=== PATIENT | female | born 1970 | race Caucasian/White ===

== ENCOUNTER 2023-10-15 08:53 | Inpatient (IN) | payer OTHER, SELFPAY ==
[2023-10-15] VITALS (12 sets, daily range): BP systolic 92–152; BP diastolic 56–94; PULSE 81–127; RESP 15–18; TEMP 36.2–37.8; O2SAT 94–100; BMI 16.3
--- NOTE | ~2023-10-15 | CT_ITS ---
EXAMINATION: CT ABDOMEN AND PELVIS WITH CONTRAST CLINICAL INFORMATION: Lower abdominal pain. COMPARISON: None available. TECHNIQUE: Multidetector volumetric images were obtained from the superior aspect of the liver through the pubic symphysis following administration 85 mL of Omnipaque 350 intravenous contrast. Sagittal and coronal reformatted images were obtained on the technologist's workstation. Oral contrast: No This CT examination was performed using dose optimization techniques as appropriate, variously including the following: *Automated exposure control *Adjustment of mA and/or kV according to patient size (this includes techniques or standardized protocols for targeted exams where dose is matched to indication/reason for exam; i.e. extremities or head) *Use of iterative reconstruction technique DLP: 260 mGy-cm FINDINGS: LUNG BASES: Small pericardial effusion. LIVER, GALLBLADDER, AND BILIARY TREE: The liver is normal in size, shape, and attenuation. No biliary ductal dilatation is present. The gallbladder is unremarkable with no evidence of radiopaque gallstones, gallbladder wall thickening, or obvious pericholecystic inflammatory changes. PANCREAS: Unremarkable. SPLEEN: Unremarkable. ADRENAL GLANDS: Unremarkable. KIDNEYS AND URETERS: Delayed enhancement of the left kidney. Moderate to marked left hydronephrosis. 1.2 x 1.2 x 1.3 cm impacted calculus at the left renal pelvis. No significant perinephric stranding. Left kidney: 2 mm upper pole nonobstructing calculus. 5 mm midpole nonobstructing calculus. 5 mm and 3 mm mid to lower pole nonobstructing calculi. 10 mm lower pole nonobstructing calculus. The right kidney enhances normally. There is an focus of enhancement in the right renal pelvis measuring 1.1 x 0.7 x 0.8 cm on image 25 of series 3. BLADDER: No bladder calculus. GASTROINTESTINAL TRACT: Rectal wall thickening with luminal narrowing. Diffuse colonic wall thickening. There is mid to distal small bowel wall thickening with submucosal edema including the terminal ileum. ABDOMINAL WALL: No significant hernia is appreciated. LYMPH NODES: No bulky abdominal or pelvic lymphadenopathy. VASCULAR: Normal caliber abdominal aorta with moderate atherosclerotic vascular calcification. PELVIC VISCERA: Moderate free fluid in the pelvis. OSSEOUS STRUCTURES: No destructive bone lesions. CT/CT abdomen pelvis w IV con IMPRESSION: Small and large bowel wall thickening with submucosal edema. The terminal ileum is thick walled. There is moderate free fluid in the pelvis. These findings can be seen in the setting of inflammatory bowel disease. Moderate to marked left hydronephrosis with 1.3 x 1.3 x 1.3 cm impacted calculus in the left renal pelvis. No significant left perinephric stranding. There are numerous additional nonobstructing left renal calculi as described above. Delayed enhancement of the left kidney due to obstructive physiology. Focus of possible enhancement within the right renal pelvis measuring 1.1 x 0.7 [address] urogram.
--- NOTE | ~2023-10-15 | FL_ITS ---
EXAMINATION: XR FLUOROSCOPY WITH IMAGES CLINICAL INFORMATION: Left ureteral stent. COMPARISON: None available. TECHNIQUE: Fluoroscopy Supervised By: Dr. Galan. Fluoroscopy Time: 17.3 seconds. Cumulative Dose: 2.58 mGy. Images: 4. FINDINGS: There are 4 digital images obtained during retrograde pyelogram with contrast opacifying a dilated pelvicalyceal system. On subsequent images there is internal ureteral stent noted. FL/FL guidance in OR IMPRESSION: Fluoroscopy-guidance was provided to referring physician during retrograde pyelogram and placement of internal ureteral stent.
--- NOTE | 2023-10-15 09:12 | ED.GENADULT ---
HPI - General Adult General Chief complaint: General Medical Stated complaint: SEVERE LOW ABD/GENITAL PAIN RAD TO ESOPHAGUS,N/V Time Seen by Provider: 10/15/23 08:56 Source: patient and EMS Mode of arrival: EMS Limitations: no limitations History of Present Illness HPI narrative: 53-year-old female came in for evaluation of lower abdominal pain for 2 days. Patient is sickness started with flu-like symptoms 2 days ago with fever and chills, then next day patient started to have intractable vomiting, and lower abdominal pain that progressively getting worse, lower abdomen cramps and severe pain which is intermittent lasts for about few minutes each time, patient stated that she had a small bowel movement yesterday, having burning sensation with urination. Never had similar abdominal pain in the past, no history of abdominal surgery. Related Data Allergies Allergy/AdvReac Type Severity Reaction Status Date / Time No Known Allergies Allergy Verified 10/15/23 09:06 Review of Systems Review of Systems: All other systems are reviewed and are negative Constitutional: Reports as per HPI and Reports no additional constitutional complaints Eyes: Reports as per HPI and Reports no additional eye complaints Reports system reviewed and no additional complaints, except as documented Cardiovascular: Reports as per HPI and Reports no additional cardiovascular complaints Respiratory: Reports as per HPI and Reports no additional respiratory complaints Gastrointestinal: Reports as per HPI and Reports no additional gastrointestinal complaints Genitourinary: Reports no additional female genitourinary complaints Musculoskeletal: Reports no additional musculoskeletal complaints Skin/Breast: Reports system reviewed and no additional complaints, except as docu Psychiatric: Reports no additional psychiatric complaints Endocrine: Reports no additional endocrine complaints Hematologic/Lymphatic: Reports no additional hematologic/lymphatic complaints Allergic/Immunologic: Reports no additional allergic/immunologic complaints Reports system reviewed and no additional complaints, except as documented and Reports Abnormal speech present [facility] Past Medical History Medical History (Updated 10/15/23 @ 14:03 by Hasmukh Burks MD) Underweight Cerebellar abscess Anxiety Social History Social History Advance Directives: No Advance Directives Information Provided: Yes Physical Exam ED Vital Signs: Vital Signs - 24 hr 10/15/23 09:09 10/15/23 09:26 10/15/23 11:28 Temperature 97.5 F 98.2 F Pulse Rate 94 99 Respiratory Rate 16 18 16 Blood Pressure 142/91 H 132/85 Pulse Oximetry 97 95 Oxygen Delivery Method Room Air Room Air BMI result Body Mass Index 16.3 Vital signs have been reviewed and appear to be correct. Blood pressure elevated. Heart rate normal. Respiratory rate normal. Temperature normal. Oxygen saturation normal. Appearance: Alert. Oriented X3. No acute distress. Head: Normal external exam. Normocephalic. Atraumatic. No Esquivel signs noted. No raccoon eyes noted Eyes: PERRLA. EOMI. Conjunctiva and sclera normal. Eyelids normal. ENT: TM's Normal. Pharynx normal. Uvula midline. Moist mucous membranes. No trismus noted. No drooling noted. No muffled voice noted. Neck: Normal inspection. Neck supple. FROM. No adenopathy. Thyroid Normal. No meningeal signs. No neck mass noted. CVS: Normal heart rate and rhythm. Heart sound normal. No murmurs noted. Pulses normal throughout. Respiratory: No respiratory distress. Painless inspiration. Breath sounds normal. No wheezes/rales/rhonchi noted. Chest nontender. No accessory muscle usage noted or decreased air movement noted. Abdomen: Soft and nontender. Bowel sounds normal in all 4 quadrants. No distention noted. No organomegaly noted. No visible injury noted. Back: No CVA tenderness. Full range of motion noted. Skin: Skin warm and dry. Normal skin color. Normal skin turgor. No rashes/lesions/lacerations noted. Extremities: No lower extremity edema. Extremities exhibit normal range of motion. Extremities nontender. Neuro: Oriented X 3. Cranial nerve exam: II-XII are grossly intact No motor deficit. No sensory deficit. Reflexes normal. Course Reevaluation(s) Reevaluation #1: Acute colitis, will start the patient on Zosyn. Patient also have a UTI with SIRS criteria should be covered by Zosyn. CT is revealing left hydronephrosis with impacted calculus in the left renal pelvis with no perinephric stranding which is not likely to be obstructive stone the case was discussed with Dr. Kiran Garcia. Patient felt better with Dilaudid IV with less tender abdomen. Time: 13:50 Medications Administered Discontinued Medications Generic Name Dose Route Start Last Admin Trade Name Freq PRN Reason Stop Dose Admin Hydromorphone HCl 0.5 mg 10/15/23 11:13 10/15/23 11:26 Hydromorphone Hcl 0.5 Mg/0.5 Ml Syringe IVPUSH 10/15/23 11:14 0.5 mg ONCE ONE Administration Protocol Sodium Chloride 1,000 mls @ 999 mls/hr 10/15/23 09:06 10/15/23 11:27 Ns IV 10/15/23 10:06 Infused .Q1H1M ONE Infusion Iohexol 100 ml 10/15/23 11:16 10/15/23 11:17 Iohexol 350 Mg/Ml 100 Ml Infus..Btl IV 10/15/23 11:17 85 ml ONCE ONE Administration Morphine Sulfate 1 mg 10/15/23 09:06 10/15/23 09:26 Morphine Sulfate 2 Mg/Ml Cartridge IVPUSH 10/15/23 09:07 1 mg ONCE ONE Administration Protocol Medical Decision Making Differential Diagnosis Differential Diagnoses: The differential diagnosis associated with the presentation includes (UTI, pyelonephritis, obstructive uropathy, colitis, severe anemia, dehydration with electrolyte abnormality.) Admission/Observation Consideration of admission/observation: Escalation of care including admission/observation considered Consult Healthcare Provider Management of the patient was discussed with: Hospitalist () and [employer] (Dr. Kiran Garcia) Lab Data MDM Lab Attestation statement: I reviewed the patient's lab results. 10/15/23 09:25 10/15/23 09:25 Labs: Lab Results 10/15/23 10/15/23 Range/Units 09:25 13:17 WBC 15.3 H (4.8-10.8) X10*3/uL RBC 5.23 (4.20-5.50) X10*6/uL Hgb 15.6 (12.0-16.0) g/dl Hct 45.3 (37.0-47.0) % MCV 86.6 (80.0-98.0) fL MCH 29.8 (27.0-33.0) pg MCHC 34.4 (31.0-35.0) g/dl RDW 13.0 (11.0-16.0) % Plt Count 288 (160-400) X10*3/uL MPV 9.2 L (9.4-12.3) fL Immature Gran % (Auto) 0.3 (0.0-0.4) % Neut % (Auto) 89.8 H (45-73) % Lymph % (Auto) 6.6 L (20-40) % Orange % (Auto) 2.9 (2-11) % Eos % (Auto) 0.1 (0-4) % Baso % (Auto) 0.3 (0-2) % Lymph # (Auto) 1.0 L (1.2-4.9) X10*3/uL Orange # (Auto) 0.4 (0.1-1.2) X10*3/uL Eos # (Auto) 0.0 (0.0-0.4) X10*3/uL Baso # (Auto) 0.0 (0.0-0.2) X10*3/uL Abs Immat Gran (auto) 0.05 H (0.00-0.03) X10*3/uL Absolute Neuts (auto) 13.7 H (2.0-8.3) x10*3/uL Absolute Nucleated RBC 0.000 (0.0-0.012) X10*3/uL Nucleated RBC % (auto) 0.0 (0.0-0.2) /100WBC Sodium 137 (135-145) mmol/L Potassium 3.5 (3.3-5.1) mmol/L Chloride 101 (96-108) mmol/L Carbon Dioxide 23 (22-29) mmol/L Anion Gap 17 (12-20) BUN 22 H (9-16) mg/dL Creatinine 0.84 (0.5-1.4) mg/dL Estim Creat Clear Calc 50.3 Estimated GFR > 60 Random Glucose 130 H (60-115) mg/dL Calcium 10.1 (8.4-10.2) mg/dL Total Bilirubin 0.8 (0.0-1.0) mg/dL Direct Bilirubin 0.3 (0.0-0.5) mg/dL AST 12 (5-31) U/L ALT 7 (0-31) U/L Alkaline Phosphatase 65 (39-117) U/L Troponin I High Sens 3.5 (<3.5-17.0) ng/L B-Natriuretic Peptide 63 (<100) pg/mL Total Protein 7.4 (6.5-8.0) g/dL Albumin 4.1 (3.5-5.0) g/dL Lipase 9 (8-78) U/L Urine Color Yellow Urine Appearance Turbid Urine pH 6.0 (5.0-9.0) Ur Specific [place] >= 1.030 H (1.005-1.025) Urine Protein 30 (1+) H (Neg-Trace) mg/dL Urine Glucose (UA) Negative (Negative) mg/dL Urine Ketones Trace (Negative) mg/dL Urine Blood Large (3+) H (Negative) Urine Nitrite Negative (Negative) Ur Leukocyte Esterase Moderate (2+) H (Negative) Urine RBC >20 H (0-2) /HPF Urine WBC >50 H (0-5) /HPF Ur Squamous Epith Cells 11-20 (0-2) /HPF Urine Bacteria 3+ (None Seen) Hyaline Casts 6-10 (0-2) /LPF Stool Occult Blood NEGATIVE (NEGATIVE) Independent Interpretation I performed an independent interpretation of an: CT Scan (Abdomen and pelvis:Small and large bowel wall thickening with submucosal edema. The terminal ileum is thick walled. There is moderate free fluid in the pelvis. These findings can be seen in the setting of inflammatory bowel disease. Moderate to marked left hydronephrosis with 1.3 x 1.3 x 1.3 cm im) Radiology Impression Discussion of test interpretation with radiology: I have reviewed the radiologist's reading. Critical Care Time Critical Care Time Critical Care Time: Yes Total Critical Care Time: 45 Attestation: I spent 45 minutes providing critical care service to the patient, this including time spent at the bedside to evaluate the patient, reassess the patient, monitoring vital signs, review labs, and radiographic studies, counseling the patient/family, discussing the case with consultants, disposition the patient. Discharge Plan Discharge Clinical Impression: UTI (urinary tract infection), Colitis Patient Disposition: Admitted As Inpatient
[2023-10-15] MEDS: Morphine Sulfate 2 MG/ML CARTRIDGE 1 MG IVPUSH (09:26)
[2023-10-15] MEDS: 0.9 % Sodium Chloride 1,000 ML 999 ML IV (09:27)
[2023-10-15 09:28] LABS: MANUAL DIFF FLAG NO
[2023-10-15 09:29] LABS: Basophils Percent Auto 0.3 % (0-2); Eosinophils Percent Auto 0.1 % (0-4); Hematocrit 45.3 % (37.0-47.0); Hemoglobin 15.6 g/dl (12.0-16.0); Imm Gran Abs Auto 0.05 X10*3/uL (0.00-0.03); Imm Gran Pct Auto 0.3 % (0.0-0.4); Lymphocytes Percent Auto 6.6 % (20-40); Mean Corpuscular HGB Conc 34.4 g/dl (31.0-35.0); Mean Corpuscular Hemoglobin 29.8 pg (27.0-33.0); Mean Corpuscular Volume 86.6 fL (80.0-98.0); Mean Platelet Volume 9.2 fL (9.4-12.3); Monocytes Absolute Auto 0.4 X10*3/uL (0.1-1.2); Monocytes Percent Auto 2.9 % (2-11); Neutrophils Absolute Auto 13.7 x10*3/uL (2.0-8.3); Neutrophils Percent Auto 89.8 % (45-73); Platelet Count 288 X10*3/uL (160-400); Red Blood Count 5.23 X10*6/uL (4.20-5.50); White Blood Count 15.3 X10*3/uL (4.8-10.8)
[2023-10-15 09:31] LABS: OBS Int Ctl Valid YES; OBS1 NEGATIVE (NEGATIVE)
--- NOTE | 2023-10-15 09:31 | PC.NURSE ---
sent all 4 tubes to lab and guiac stool card to lab. given morphine for abdominal and genital pain as reported. piv to left ac 20g c/d/i.
[2023-10-15 09:43] LABS: Alanine Aminotransferase 7 U/L (0-31); Albumin Level 4.1 g/dL (3.5-5.0); Alkaline Phosphatase 65 U/L (39-117); Anion Gap 17 (12-20); Aspartate Amino Transferase 12 U/L (5-31); Bilirubin Direct 0.3 mg/dL (0.0-0.5); Bilirubin Total 0.8 mg/dL (0.0-1.0); Blood Urea Nitrogen 22 mg/dL (9-16); Calcium 10.1 mg/dL (8.4-10.2); Carbon Dioxide 23 mmol/L (22-29); Chloride 101 mmol/L (96-108); Creatinine Clr Calc Pharmacy 50.3; Estimated Glomerular Filt Rate > 60; Glucose Random 130 mg/dL (60-115); Lipase 9 U/L (8-78); Potassium 3.5 mmol/L (3.3-5.1); Sodium 137 mmol/L (135-145); Total Protein 7.4 g/dL (6.5-8.0)
[2023-10-15 09:48] LABS: B Type Natriuretic Peptide 63 pg/mL (<100)
[2023-10-15 09:50] LABS: Troponin-I High Sensitivity 3.5 ng/L (<3.5-17.0)
[2023-10-15] MEDS: iohexoL 350 MG/ML 100 ML INFUS..BTL IV (11:17)
[2023-10-15] MEDS: HYDROmorphone HCl 0.5 MG/0.5 ML SYRINGE IVPUSH (11:26)
[2023-10-15 13:25] LABS: Appearance Urine Turbid; Color Urine Yellow; Glucose Urine UA Negative (Negative); Leukocyte Esterase Urine Moderate (2+) (Negative); Nitrite Urine Negative (Negative); Specific Gravity - Urine >= 1.030 (1.005-1.025); UMIC TRIGGER UACC YES; Urine Blood Large (3+) (Negative); Urine Ketones Trace mg/dL (Negative); Urine Protein 30 (1+) mg/dL (Neg-Trace)
[2023-10-15 13:40] LABS: Bacteria Urine 3+ (None Seen); RBC Urine >20 /HPF (0-2); UACC Culture Trigger YES; WBC Urine >50 /HPF (0-5)
[2023-10-15] MEDS: Piperacillin Sodium/Tazobactam 3.375 GM in 0.9 % Sodium Chloride 50 ML IV (14:20)
[2023-10-15 14:21] LABS: C Reactive Protein 31.72 mg/dL (< or = 0.50)
--- NOTE | 2023-10-15 14:22 | PM.IMHP ---
History of Present Illness Date of Service: 10/15/23 Chief Complaint: n/v 53F PMH unintentional weight loss, nephrolithiasis presented with abd pain, n/v. symptoms began 2 nights prior to presentation. severe diffuse abdominal pain a/w nausea and vomiting. subjective fevers, chills. also reports about 30lbs unintentional weight loss despite reasonable appetite over past several months. denies diarrhea, blood in stool. in ED noted to have obstructing left ureteral stone, positive ua, ileocolitis. Review of Systems Review of Systems: Yes all other systems are reviewed and are negative [facility] Medical History Underweight Cerebellar abscess Anxiety Social History Advance Directives: No Advance Directives Information Provided: Yes Meds Allergies Allergy/AdvReac Type Severity Reaction Status Date / Time No Known Allergies Allergy Verified 10/15/23 09:06 Home Medications Medication Instructions Recorded Confirmed Last Taken Type No Known Home Meds 10/15/23 10/15/23 Unknown History Physical Exam Vital Signs and Narrative: Vital Signs: Last Vital Signs Temp 98.2 F 10/15/23 11:28 Pulse 99 10/15/23 11:28 Resp 16 10/15/23 11:28 BP 132/85 10/15/23 11:28 Pulse Ox 95 10/15/23 11:28 O2 Del Method Room Air 10/15/23 11:28 BMI result Body Mass Index 16.3 General: AO X 3, no acute distress Resp: CTA bilateral, no accessory muscles used CVS: S1,S2,RRR GI: soft, non tender, non distended Neuro: motor grossly intact, alert Psych: appropriate affect, appropriate insight Results Labs 10/15/23 09:25 10/15/23 09:25 Labs: Laboratory Results - last 24 hr 10/15/23 10/15/23 09:25 13:17 MCV 86.6 MCH 29.8 MCHC 34.4 RDW 13.0 Plt Count 288 MPV 9.2 L Immature Gran % (Auto) 0.3 Neut % (Auto) 89.8 H Lymph % (Auto) 6.6 L Keith % (Auto) 2.9 Eos % (Auto) 0.1 Baso % (Auto) 0.3 Lymph # (Auto) 1.0 L Keith # (Auto) 0.4 Eos # (Auto) 0.0 Baso # (Auto) 0.0 Abs Immat Gran (auto) 0.05 H Absolute Neuts (auto) 13.7 H Absolute Nucleated RBC 0.000 Nucleated RBC % (auto) 0.0 Anion Gap 17 Estim Creat Clear Calc 50.3 Estimated GFR > 60 Random Glucose 130 H Calcium 10.1 Total Bilirubin 0.8 Direct Bilirubin 0.3 AST 12 ALT 7 Alkaline Phosphatase 65 Troponin I High Sens 3.5 C-Reactive Protein 31.72 H B-Natriuretic Peptide 63 Total Protein 7.4 Albumin 4.1 Lipase 9 Urine Color Yellow Urine Appearance Turbid Urine pH 6.0 Ur Specific [place] >= 1.030 H Urine Protein 30 (1+) H Urine Glucose (UA) Negative Urine Ketones Trace Urine Blood Large (3+) H Urine Nitrite Negative Ur Leukocyte Esterase Moderate (2+) H Urine RBC >20 H Urine WBC >50 H Ur Squamous Epith Cells 11-20 Urine Bacteria 3+ Hyaline Casts 6-10 Stool Occult Blood NEGATIVE Imaging Radiologist's Impressions: Impressions Abdomen/Pelvis CT 10/15/23 11:50 IMPRESSION: Small and large bowel wall thickening with submucosal edema. The terminal ileum is thick walled. There is moderate free fluid in the pelvis. These findings can be seen in the setting of inflammatory bowel disease. Moderate to marked left hydronephrosis with 1.3 x 1.3 x 1.3 cm impacted calculus in the left renal pelvis. No significant left perinephric stranding. There are numerous additional nonobstructing left renal calculi as described above. Delayed enhancement of the left kidney due to obstructive physiology. Focus of possible enhancement within the right renal pelvis measuring 1.1 x 0.7 x [address] urogram. Assessment and Plan (1) Colitis: Status: Acute (2) UTI (urinary tract infection): Status: Acute Plan 53F PMH unintentional weight loss, nephrolithiasis presented with abd pain, n/v sepsis due to UTI due to obstructing left nephrolithiasis with hydronephrosis rocpehin, cultures, gu eval ileocolitis concern for IBD empiric rocpehin, flagyl check stool pcr, calprotectin, gi eval clears for now unintentional weight loss - underweight ?due to above dvt prophylaxis - lovenox full code patient with significant urine infection, obstructing stone, not tolerating solids, likely to need surgical intervention, therefore, expected to require atleast 2 midnights inpatient. Quality Stroke Does the patient have a stroke diagnosis?: No VTE Prior VTE?: No VTE Risk Level:: Medical - moderate - high VTE Device Contraindication: Treatment Not Indicated VTE Drug Contraindication: N/A - Med Ordered
--- NOTE | 2023-10-15 14:31 | PHA.MEDREC ---
Pharmacy Consult ? Medication Reconciliation Pharmacy has completed the medication reconciliation. Patient reported no medicaiton at home. Yoli Arteaga, DestinyD
[2023-10-15 15:00] LABS: Lactic Acid 0.9 mmol/L (0.5-2.0)
--- NOTE | 2023-10-15 15:32 | P.CNUR_ITS ---
History of Present Illness Consult details Consult date: 10/15/23 Narrative: June is a 53 year old female with and obstructing left UPJ stone with multiple left renal stones and UTI. CT scan abd/pelvis with IV contrast also notes question of 1.1 cm enhancement in the right renal pelvis which will need further evaluation. Pt has leukocytosis, elevated WBC and I have discussed placement of left ureteral stent. CTAP w/IV contrast: KIDNEYS AND URETERS: Delayed enhancement of the left kidney. Moderate to marked left hydronephrosis. 1.2 x 1.2 x 1.3 cm impacted calculus at the left renal pelvis. No significant perinephric stranding. Also Left kidney: with 2 mm upper pole nonobstructing calculus. 5 mm midpole nonobstructing calculus. 5 mm and 3 mm mid to lower pole nonobstructing calculi. 10 mm lower pole nonobstructing calculus. The right kidney enhances normally. There is an focus of enhancement in the right renal pelvis measuring 1.1 x 0.7 x 0.8 cm on image 25 of series 3. Review of Systems 2 Review of Systems: 10 point ROS negative other than stated in HPI [facility] Past Medical History Medical History (Updated 10/15/23 @ 15:43 by Kiran Garcia MD) Underweight Cerebellar abscess Anxiety Surgical History Surgical History (Updated 10/15/23 @ 16:52 by Sangita Brito) H/O tubal ligation H/O brain surgery Social History Social History Patient Tobacco Use Status: Current everyday Tobacco user Tobacco use type: Cigarette Cigarette Packs Per Day: 0.5 Cigarettes Per Day: 10.0 Years Smoked: 30 Meds Allergies Allergy/AdvReac Type Severity Reaction Status Date / Time No Known Allergies Allergy Verified 10/15/23 16:52 Active Medications: Current Medications Acetaminophen (Acetaminophen 325 Mg Tablet) 650 mg PO Q4H PRN PRN Reason: pain or fever Enoxaparin Sodium (Enoxaparin Sodium 40 Mg/0.4 Ml Syringe) 40 mg SUBCUT Q24H EDUARDO Ceftriaxone Sodium 1 gm/ (Sodium Chloride) 50 mls @ 100 mls/hr IV Q24H EDUARDO Metronidazole (Flagyl) 500 mg in 100 mls @ 100 mls/hr IV Q8H EDUARDO Sodium Chloride (Ns) 1,000 mls @ 75 mls/hr IVCONT .[id number] [facility] Morphine Sulfate (Morphine Sulfate 2 Mg/Ml Cartridge) 2 mg IVPUSH Q3H PRN; Protocol PRN Reason: moderate pain Sodium Chloride (0.9 % Sodium Chloride Flush 3 Ml Syringe) 3 ml IVFLUSH QSHIFT EDUARDO Home Medications Medication Instructions Recorded Confirmed Last Taken Type No Known Home Meds 10/15/23 10/15/23 Unknown History Physical Exam 2 Vital Signs: Vital Signs: Last Vital Signs Temp 98.2 F 10/15/23 11:28 Pulse 99 10/15/23 11:28 Resp 16 10/15/23 11:28 BP 132/85 10/15/23 11:28 Pulse Ox 95 10/15/23 11:28 O2 Del Method Room Air 10/15/23 11:28 BMI result Body Mass Index 16.3 Const: General: cooperative, healthy appearing and no acute distress O rientation/consciousness: patient oriented x3 HEENT: Head: Yes normal to inspection, Yes normocephalic and Yes atraumatic Eyes: Conjunctivae: conjunctivae normal Neck: Neck: Yes normal visual inspection and Yes trachea midline Chest: Chest palpation & inspection: normal inspection of the chest Resp: Effort & Inspection: normal respiratory effort Cardio: Rate: regular rate GI: Inspection: Yes normal to inspection Palpation (GI): Soft to palpation : General: Yes CVA tenderness (left) Back/Spine/Pelvis: Back: CVA tenderness (left) Skin: General skin exam: no rashes or lesions noted Neuro: General: patient oriented x3 Extrem: General: No edema Psych: Appearance: grossly normal Results Labs 10/15/23 09:25 10/15/23 09:25 Labs: Abnormal lab results 10/15/23 10/15/23 Range/Units 09:25 13:17 WBC 15.3 H (4.8-10.8) X10*3/uL MPV 9.2 L (9.4-12.3) fL Neut % (Auto) 89.8 H (45-73) % Lymph % (Auto) 6.6 L (20-40) % Lymph # (Auto) 1.0 L (1.2-4.9) X10*3/uL Abs Immat Gran (auto) 0.05 H (0.00-0.03) X10*3/uL Absolute Neuts (auto) 13.7 H (2.0-8.3) x10*3/uL BUN 22 H (9-16) mg/dL Random Glucose 130 H (60-115) mg/dL C-Reactive Protein 31.72 H (< or = 0.50) mg/dL Ur Specific [place] >= 1.030 H (1.005-1.025) Urine Protein 30 (1+) H (Neg-Trace) mg/dL Urine Blood Large (3+) H (Negative) Ur Leukocyte Esterase Moderate (2+) H (Negative) Urine RBC >20 H (0-2) /HPF Urine WBC >50 H (0-5) /HPF Short CBC 10/15/23 Range/Units 09:25 WBC 15.3 H (4.8-10.8) X10*3/uL Hgb 15.6 (12.0-16.0) g/dl Hct 45.3 (37.0-47.0) % Plt Count 288 (160-400) X10*3/uL BMP 10/15/23 09:25 Sodium 137 Potassium 3.5 Chloride 101 Carbon Dioxide 23 BUN 22 H Creatinine 0.84 Calcium 10.1 Liver Function 10/15/23 Range/Units 09:25 Total Bilirubin 0.8 (0.0-1.0) mg/dL Direct Bilirubin 0.3 (0.0-0.5) mg/dL AST 12 (5-31) U/L ALT 7 (0-31) U/L Alkaline Phosphatase 65 (39-117) U/L Albumin 4.1 (3.5-5.0) g/dL Urine 10/15/23 Range/Units 13:17 Urine Color Yellow Urine Appearance Turbid Urine pH 6.0 (5.0-9.0) Ur Specific [place] >= 1.030 H (1.005-1.025) Urine Protein 30 (1+) H (Neg-Trace) mg/dL Urine Glucose (UA) Negative (Negative) mg/dL Imaging Abdomen CT scan report/results: report reviewed and image reviewed CT scan - pelvis: report reviewed and image reviewed Additional studies: Date of Service: 10/15/23 EXAMINATION: CT ABDOMEN AND PELVIS WITH CONTRAST CLINICAL INFORMATION: Lower abdominal pain. COMPARISON: None available. TECHNIQUE: Multidetector volumetric images were obtained from the superior aspect of the liver through the pubic symphysis following administration 85 mL of Omnipaque 350 intravenous contrast. Sagittal and coronal reformatted images were obtained on the technologist's workstation. Oral contrast: No This CT examination was performed using dose optimization techniques as appropriate, variously including the following: *Automated exposure control *Adjustment of mA and/or kV according to patient size (this includes techniques or standardized protocols for targeted exams where dose is matched to indication/reason for exam; i.e. extremities or head) *Use of iterative reconstruction technique DLP: 260 mGy-cm FINDINGS: LUNG BASES: Small pericardial effusion. LIVER, GALLBLADDER, AND BILIARY TREE: The liver is normal in size, shape, and attenuation. No biliary ductal dilatation is present. The gallbladder is unremarkable with no evidence of radiopaque gallstones, gallbladder wall thickening, or obvious pericholecystic inflammatory changes. PANCREAS: Unremarkable. SPLEEN: Unremarkable. ADRENAL GLANDS: Unremarkable. KIDNEYS AND URETERS: Delayed enhancement of the left kidney. Moderate to marked left hydronephrosis. 1.2 x 1.2 x 1.3 cm impacted calculus at the left renal pelvis. No significant perinephric stranding. Left kidney: 2 mm upper pole nonobstructing calculus. 5 mm midpole nonobstructing calculus. 5 mm and 3 mm mid to lower pole nonobstructing calculi. 10 mm lower pole nonobstructing calculus. The right kidney enhances normally. There is an focus of enhancement in the right renal pelvis measuring 1.1 x 0.7 x 0.8 cm on image 25 of series 3. BLADDER: No bladder calculus. GASTROINTESTINAL TRACT: Rectal wall thickening with luminal narrowing. Diffuse colonic wall thickening. There is mid to distal small bowel wall thickening with submucosal edema including the terminal ileum. ABDOMINAL WALL: No significant hernia is appreciated. LYMPH NODES: No bulky abdominal or pelvic lymphadenopathy. VASCULAR: Normal caliber abdominal aorta with moderate atherosclerotic vascular calcification. PELVIC VISCERA: Moderate free fluid in the pelvis. OSSEOUS STRUCTURES: No destructive bone lesions. IMPRESSION: Small and large bowel wall thickening with submucosal edema. The terminal ileum is thick walled. There is moderate free fluid in the pelvis. These findings can be seen in the setting of inflammatory bowel disease. Moderate to marked left hydronephrosis with 1.3 x 1.3 x 1.3 cm impacted calculus in the left renal pelvis. No significant left perinephric stranding. There are numerous additional nonobstructing left renal calculi as described above. Delayed enhancement of the left kidney due to obstructive physiology. Focus of possible enhancement within the right renal pelvis measuring 1.1 x 0.7 x [address] urogram. Assessment and Plan (1) UTI (urinary tract infection): Status: Acute (2) Obstructive uropathy: Status: Acute (3) Kidney stone on left side: Status: Acute (4) Nephrolithiasis: Status: Acute (5) Abnormal finding on CT scan: Start date: 10/15/23 Status: Acute The right kidney enhances normally. There is an focus of possible enhancement in the right renal pelvis measuring 1.1 x 0.7 x 0.8 cm on image 25 of series 3. Plan 1.1 cm enhancement in the right renal pelvis which will need further evaluation. Pt has leukocytosis, elevated WBC and I have discussed cystoscopy, retrograde placement of left ureteral stent. Procedures Date of Service Date of Service: 10/15/23
[2023-10-15] MEDS: metroNIDAZOLE/NS 500 MG/100 ML PIGGYBACK 100 MG IV ×2 (16:10→22:09)
[2023-10-15] MEDS: 0.9 % Sodium Chloride 1,000 ML 75 ML IVCONT ×2 (16:10→20:19)
[2023-10-15] MEDS: ondansetron HCL 4 MG/2 ML VIAL IVPUSH ×2 (16:46→20:02)
--- NOTE | 2023-10-15 16:55 | HO.ANESPROP2 ---
HPI - Anesthesia Eval Consult details Narrative: for cysto, stent PMFSH Active Problems Active Problems: All Active Problems (Updated 10/15/23 @ 15:43 by Kiran Garcia MD) Abnormal finding on CT scan (Acute) Nephrolithiasis (Acute) Kidney stone on left side (Acute) Obstructive uropathy (Acute) Colitis (Acute) UTI (urinary tract infection) (Acute) Underweight (Acute) Anxiety (Acute) Past Medical History Medical History (Updated 10/15/23 @ 15:43 by Kiran Garcia MD) Underweight Cerebellar abscess Anxiety Family History Family history of problems with anesthesia: No Surgical History Surgical History (Updated 10/15/23 @ 16:52 by Sangita Brito) H/O tubal ligation H/O brain surgery History of Problems with Anesthesia: No Meds Allergies Allergy/AdvReac Type Severity Reaction Status Date / Time No Known Allergies Allergy Verified 10/15/23 16:52 Active Medications: Current Medications Acetaminophen (Acetaminophen 325 Mg Tablet) 650 mg PO Q4H PRN PRN Reason: pain or fever Enoxaparin Sodium (Enoxaparin Sodium 40 Mg/0.4 Ml Syringe) 40 mg SUBCUT Q24H EDUARD[facility] Ceftriaxone Sodium 1 gm/ (Sodium Chloride) 50 mls @ 100 mls/hr IV Q24H [facility] Metronidazole (Flagyl) 500 mg in 100 mls @ 100 mls/hr IV Q8H [facility] Last Admin: 10/15/23 16:10 Dose: 100 mls/hr Sodium Chloride (Ns) 1,000 mls @ 75 mls/hr IVCONT .[id number] [facility] Last Admin: 10/15/23 16:10 Dose: 75 mls/hr Morphine Sulfate (Morphine Sulfate 2 Mg/Ml Cartridge) 2 mg IVPUSH Q3H PRN; Protocol PRN Reason: moderate pain Ondansetron HCl (Ondansetron Hcl 4 Mg/2 Ml Vial) 4 mg IVPUSH ONCE ONE Stop: 10/15/23 16:55 Sodium Chloride (0.9 % Sodium Chloride Flush 3 Ml Syringe) 3 ml IVFLUSH QSHIFT [facility] Last Admin: 10/15/23 16:10 Dose: Not Given Home Medications Medication Instructions Recorded Confirmed Last Taken Type No Known Home Meds 10/15/23 10/15/23 Unknown History Exam Height,Weight and Vital Signs: Height 5 ft 3 in Weight 41.7 kg Last Vital Signs Temp 98.2 F 10/15/23 11:28 Pulse 99 10/15/23 11:28 Resp 16 10/15/23 11:28 BP 132/85 10/15/23 11:28 Pulse Ox 95 10/15/23 11:28 O2 Del Method Room Air 10/15/23 11:28 Pertinent Lab Results Pertinent Lab Results: Laboratory Tests 10/15/23 10/15/23 10/15/23 09:25 13:17 14:40 WBC 15.3 H RBC 5.23 Hgb 15.6 Hct 45.3 MCV 86.6 MCH 29.8 MCHC 34.4 RDW 13.0 Plt Count 288 MPV 9.2 L Immature Gran % (Auto) 0.3 Neut % (Auto) 89.8 H Lymph % (Auto) 6.6 L [place] % (Auto) 2.9 Eos % (Auto) 0.1 Baso % (Auto) 0.3 Lymph # (Auto) 1.0 L [place] # (Auto) 0.4 Eos # (Auto) 0.0 Baso # (Auto) 0.0 Abs Immat Gran (auto) 0.05 H Absolute Neuts (auto) 13.7 H Absolute Nucleated RBC 0.000 Nucleated RBC % (auto) 0.0 Sodium 137 Potassium 3.5 Chloride 101 Carbon Dioxide 23 Anion Gap 17 BUN 22 H Creatinine 0.84 Estim Creat Clear Calc 50.3 Estimated GFR > 60 Random Glucose 130 H Lactic Acid 0.9 Calcium 10.1 Total Bilirubin 0.8 Direct Bilirubin 0.3 AST 12 ALT 7 Alkaline Phosphatase 65 Troponin I High Sens 3.5 C-Reactive Protein 31.72 H B-Natriuretic Peptide 63 Total Protein 7.4 Albumin 4.1 Lipase 9 Urine Color Yellow Urine Appearance Turbid Urine pH 6.0 Ur Specific [place] >= 1.030 H Urine Protein 30 (1+) H Urine Glucose (UA) Negative Urine Ketones Trace Urine Blood Large (3+) H Urine Nitrite Negative Ur Leukocyte Esterase Moderate (2+) H Urine RBC >20 H Urine WBC >50 H Ur Squamous Epith Cells 11-20 Urine Bacteria 3+ Hyaline Casts 6-10 Stool Occult Blood NEGATIVE Airway Mallampati Class: I TM Dist: >3cm Neck ROM: Full Denture: Upper and Lower Heart: ok Lungs: ok Assessment and Plan Assessment Anesthesia Assessment: Anesthesia Plan Discussed and Chart Reviewed Final Anesthetic Review Family History of Problems with Anesthesia: No History of Problems with Anesthesia: No NPO: Yes ASA Class: III and Emergency Final Preanesthetic Review: No Changes in Pt Med Stat, Meds/Allgs Chart Reviewed, Consent Obtained/Reviewed and Anes Risks/Benef Reviewed Patient Risk: Intermediate Procedure Risk: Low Anesthetic Plan Anesthetic Plan: GA and Agree w/ Assess. and Plan Disposition: Standard PACU
--- NOTE | 2023-10-15 17:05 | PM.GICN ---
History of Present Illness Data of Consult Service Date: 10/15/23 Requesting physician: Alverto Paris Primary Care Provider: Unknown Physician HPI Reason for consult: ? IBD 53 YF with hx of anxiety seen at [facility] on 10/15/23 with lower abdominal pain with chills and sweating for 2 days. PT reports having low energy since 10/14/23 (like she was getting a cold) followed by recurrent vomiting lasting for approx 9 hours. She stayed home and noted worsening diffuse intermittent abd pain from her vagina to the ribs which felt like a spasm and lasts for a few minutes. Pt reports abd pain became worse to 10/10 in intensity this morning. Pt notes she has been able to drink some water and has not eaten anything since she became ill. She reports being constipated and denies diarrhea (last bowel movement was a few days ago with passage of hard stools) Patient also notes a burning sensation with urination. She denies history of similar symptoms in the past are having any abdominal operations Patient reports improvement in pain to 4 x 10 after receiving pain medications. Pt has GERD and a twisted esophagus and denies any cardiac or pulmonary problems, history of loud snoring or sleep apnea. She takes antacids p.r.n. and denies taking PPIs for GERD symptoms. She admits to smoking half pack of cigarettes per day for the past 18 years. Patient also smokes marijuana at bedtime for anxiety and to help her sleep at night She admits to taking Motrin 400 mg p.r.n. intermittently. Patient gives a history of unintentional weight loss from 115 lbs 6 months ago to 91 lbs She attributes this to a change in her job so she is working till 7 or 8 pm at night and skips dinner. 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 She is , lives by herself and has 3 children. FAMILY HISTORY: Positive for GERD in patient's mom. Patient denies known family history of colon polyps, IBD or GI malignancy. 10/15/[address] SCAN SHOWED: Small and large bowel wall thickening with submucosal edema. The terminal ileum is thick walled. There is moderate free fluid in the pelvis. These findings can be seen in the setting of inflammatory bowel disease. Moderate to marked left hydronephrosis with 1.3 x 1.3 x 1.3 cm impacted calculus in the left renal pelvis. No significant left perinephric stranding. There are numerous additional nonobstructing left renal calculi as described above. Delayed enhancement of the left kidney due to obstructive physiology. Focus of possible enhancement within the right renal pelvis measuring 1.1 x 0.7 x 0.8 cm. Review of Systems Review of Systems: 10 point ROS negative other than stated in HPI [facility] Past Medical History Medical History Underweight Cerebellar abscess Anxiety Surgical History Surgical History H/O tubal ligation H/O brain surgery Social History Social History Household Members: None Housing: Apartment Do you presently have visiting nurse or other home services: No Patient Tobacco Use Status: Current everyday Tobacco user Tobacco use type: Cigarette Cigarette Packs Per Day: 0.5 Cigarettes Per Day: 10.0 Years Smoked: 30 Second Hand Smoke Exposure: No Substance Use Type: Marijuana service: No Meds Allergies Allergy/AdvReac Type Severity Reaction Status Date / Time No Known Allergies Allergy Verified 10/26/23 13:38 Active Medications: Current Medications Acetaminophen (Acetaminophen 325 Mg Tablet) 650 mg PO Q4H PRN PRN Reason: pain or fever Enoxaparin Sodium (Enoxaparin Sodium 40 Mg/0.4 Ml Syringe) 40 mg SUBCUT Q24H [facility] Ceftriaxone Sodium 1 gm/ (Sodium Chloride) 50 mls @ 100 mls/hr IV Q24H [facility] Metronidazole (Flagyl) 500 mg in 100 mls @ 100 mls/hr IV Q8H [facility] Last Admin: 10/15/23 16:10 Dose: 100 mls/hr Sodium Chloride (Ns) 1,000 mls @ 75 mls/hr IVCONT .[id number] [facility] Last Admin: 10/15/23 16:10 Dose: 75 mls/hr Morphine Sulfate (Morphine Sulfate 2 Mg/Ml Cartridge) 2 mg IVPUSH Q3H PRN; Protocol PRN Reason: moderate pain Ondansetron HCl (Ondansetron Hcl 4 Mg/2 Ml Vial) 4 mg IVPUSH ONCE ONE Stop: 10/15/23 16:55 Last Admin: 10/15/23 16:46 Dose: 4 mg Sodium Chloride (0.9 % Sodium Chloride Flush 3 Ml Syringe) 3 ml IVFLUSH QSHIFT [facility] Last Admin: 10/15/23 16:10 Dose: Not Given Physical Exam Vital Signs: Vital Signs: Last Vital Signs Temp 100.0 F 10/15/23 16:53 Pulse 88 10/15/23 16:53 Resp 16 10/15/23 16:53 BP 141/93 H 10/15/23 16:53 Pulse Ox 97 10/15/23 16:53 O2 Del Method Room Air 10/15/23 16:53 BMI result Body Mass Index 16.3 Const: General: cooperative, healthy appearing and no acute distress Orientation/consciousness: patient oriented x3 HEENT: Head: Yes normal to inspection, Yes normocephalic and Yes atraumatic Eyes: Conjunctivae: conjunctivae normal Neck: Neck: Yes normal visual inspection and Yes trachea midline Chest: Chest palpation & inspection: normal inspection of the chest Resp: Effort & Inspection: normal respiratory effort Cardio: Rate: regular rate GI: Inspection: Yes normal to inspection Palpation (GI): Soft to palpation and Tenderness to palpation present (GI) (Positive guarding with diffuse tenderness) : General: Yes CVA tenderness (left) Back/Spine/Pelvis: Back: CVA tenderness (left) Skin: General skin exam: no rashes or lesions noted Neuro: General: patient oriented x3 Extrem: General: No edema Psych: Appearance: grossly normal Results Labs 10/17/23 05:19 10/17/23 05:19 Labs: Short CBC 10/15/23 Range/Units 09:25 WBC 15.3 H (4.8-10.8) X10*3/uL Hgb 15.6 (12.0-16.0) g/dl Hct 45.3 (37.0-47.0) % Plt Count 288 (160-400) X10*3/uL BMP 10/15/23 09:25 Sodium 137 Potassium 3.5 Chloride 101 Carbon Dioxide 23 BUN 22 H Creatinine 0.84 Calcium 10.1 Liver Function 10/15/23 Range/Units 09:25 Total Bilirubin 0.8 (0.0-1.0) mg/dL Direct Bilirubin 0.3 (0.0-0.5) mg/dL AST 12 (5-31) U/L ALT 7 (0-31) U/L Alkaline Phosphatase 65 (39-117) U/L Albumin 4.1 (3.5-5.0) g/dL Urine 10/15/23 Range/Units 13:17 Urine Color Yellow Urine Appearance Turbid Urine pH 6.0 (5.0-9.0) Ur Specific [place] >= 1.030 H (1.005-1.025) Urine Protein 30 (1+) H (Neg-Trace) mg/dL Urine Glucose (UA) Negative (Negative) mg/dL Assessment and Plan (1) Abnormal finding on CT scan: Status: Acute (2) Colitis: Status: Acute Plan 53 YF with hx of anxiety seen at [facility] on 10/15/23 with lower abdominal pain with chills and sweating for 2 days. She noted worsening diffuse intermittent abd pain from her vagina to the ribs which felt like a spasm and lasts for a few minutes. Patient also notes a burning sensation with urination. Abd CT scan (reviewed with Radiology) showed moderate to marked left hydronephrosis with 1.3 x 1.3 x 1.3 cm impacted calculus in the left renal pelvis. No significant left perinephric stranding. There are numerous additional nonobstructing left renal calculi as described above. Small and large bowel wall thickening with submucosal edema, thick walled TI and moderate free fluid in the pelvis. Changes in small bowel and colon likely due to under distension and ileus associated with uro-sepsis rather than IBD given short duration of symptoms. Patient is scheduled for a cystoscopy with stent placement by Urology today RECOMMENDATIONS: 1. Agree with IV antibiotics and IV anti-emetics and pain medications. 2. Follow pt's symptoms and CRP levels post stent placement. 3. If symptoms persist, schedule a CT enterography. ADDENDUM: HOSPITAL COURSE Patient was admitted for sepsis due to urinary tract infection due to obstructing left nephrolithiasis with hydronephrosis. She was treated empirically with ceftriaxone and will be discharged on 5 more days of Augmentin. Cultures were negative. She underwent stent placement on 10/15/2023 and will follow up with Urology as outpatient. For ileal colitis seen on CT scan she was seen by GI who felt this was most likely underdistention due to nausea and vomiting, but still suspicious for possible IBD. She was treated empirically with ceftriaxone and Flagyl and will continue 5 days of Augmentin as mentioned. Will likely need CT enterography as outpatient if her symptoms persist. Patient was advanced to solids and tolerated well. She will be discharged home. Procedures Date of Service Date of Service: 12/04/23
--- NOTE | 2023-10-15 17:12 | PC.NURSE ---
Addendum entered by Sangita Brito 10/15/23 17:23: Correction- Left AC. Original Note: Patient in preop. #20 peripheral IV in right AC asymptomatic. Placed previously in ED.
--- NOTE | 2023-10-15 17:14 | MHC.SHP ---
Pre-Procedural Eval Section A - 24 Hr Update-Section A only Date of Service: 10/15/23 The patient is an INPATIENT: Yes Section B - Complete if H&P > 30 days Chief Complaint: UTI Obstructive uropathy Allergies: Allergies Allergy/AdvReac Type Severity Reaction Status Date / Time No Known Allergies Allergy Verified 10/15/23 16:52 Plan Diagnosis/Plan: Unchanged I have reviewed the history and physical and performed a pertinent physical examination on my patient. No changes have occurred unless specified. cysto left retrograde, ureteral stent. Time Spent With Patient Time: Total time managing care of this patient today ____ minutes.
--- NOTE | 2023-10-15 17:46 | W.PM.OPN ---
Operative Note Operative Note Date of Service: 10/15/23 Narrative: PreOperative Diagnosis:?? left UPJ stone, obstructive uropathy, UTI Post Operative Diagnosis:?? ?left UPJ stone, obstructive uropathy, UTI Procedure: - cystoscopy, left ureteral insertion, size 7 fr by 26 cm Surgeon:?Dr Kiran Garcia Anesthesia:? General Indications for procedure: UTI, CT imaging left UPJ impacting stone with moderate to marked hydronephrosis. Procedure: After informed consent was verified the patient was brought to the operating placed on the OR table in supine position.? General Anesthesia was administered per protocol.? The patient was placed in lithotomy position, prepped and draped in the usual sterile fashion.? Safety pause time-out and side of surgery confirmed.? Antibiotics confirmed. Levaquin 500 mg IV. A 22 [place] cystoscope was inserted transurethrally, The bladder was visualized.? Both ureteric orifices were in normal position. Fluoroscopy noted retained contrast material in the left renal pelvis from earlier CAT scan. The? left ureteric orifice was cannulated? and a hydrophilic guidewire was placed up to the level of the renal pelvis under fluoroscopy. The open ended ureteral catheter was passed into the renal pelvis and urine was obtained and sent for culture. A 7 fr by 26 cm ureteral stent was passed over the guide wire under fluoroscopic guidance. The guide wire was removed. The bladder was emptied.? The rigid cystoscope was removed. ? 2% lidocaine jelly was passed transurethrally. The patient tolerated the procedure well and was brought to the recovery room in stable condition. Complications: None Drains: Ureteral stent as dictated above
[2023-10-15] MEDS: cefTRIAXone sodium 1 GM in 0.9 % Sodium Chloride 50 ML IV (19:43)
[2023-10-15] MEDS: Metoclopramide HCl 10 MG/2 ML VIAL 5 MG IVPUSH (23:25)
[2023-10-16] VITALS: BP 101/61; PULSE 76; RESP 17; TEMP 36.3; O2SAT 95
[2023-10-16 03:40] VITALS: BP 129/81; PULSE 88; RESP 18; TEMP 36; O2SAT 96
[2023-10-16] MEDS: metroNIDAZOLE/NS 500 MG/100 ML PIGGYBACK 100 MG IV ×3 (06:21→22:30)
[2023-10-16] MEDS: Acetaminophen 325 MG TABLET 650 MG PO ×2 (06:25→13:01)
[2023-10-16 06:41] LABS: Hematocrit 36.3 % (37.0-47.0); Hemoglobin 12.3 g/dl (12.0-16.0); Mean Corpuscular HGB Conc 33.9 g/dl (31.0-35.0); Mean Corpuscular Hemoglobin 29.8 pg (27.0-33.0); Mean Corpuscular Volume 87.9 fL (80.0-98.0); Mean Platelet Volume 9.5 fL (9.4-12.3); Platelet Count 248 X10*3/uL (160-400); Red Blood Count 4.13 X10*6/uL (4.20-5.50); Red Cell Distribution Width 13.2 % (11.0-16.0); White Blood Count 14.2 X10*3/uL (4.8-10.8)
[2023-10-16 07:00] LABS: Anion Gap 11 (12-20); Blood Urea Nitrogen 16 mg/dL (9-16); Calcium 8.9 mg/dL (8.4-10.2); Carbon Dioxide 23 mmol/L (22-29); Chloride 107 mmol/L (96-108); Creatinine Clr Calc Pharmacy 62.2; Estimated Glomerular Filt Rate > 60; Glucose Fasting 112 mg/dL (60-99); Potassium 3.2 mmol/L (3.3-5.1); Sodium 138 mmol/L (135-145)
[2023-10-16 08:00] VITALS: BP 126/68; PULSE 86; RESP 15; TEMP 36.4; O2SAT 96
--- NOTE | 2023-10-16 08:34 | PM.UROPN ---
Subjective Subjective Date of Service: 10/16/23 Patient reports: no new complaints and feels better Interval history: s/p left ureteral stent on 10/15/23 Physical Exam Vital Signs: Vital Signs: Last Vital Signs Temp 97.5 F 10/16/23 08:00 Pulse 86 10/16/23 08:00 Resp 15 10/16/23 08:00 BP 126/68 10/16/23 08:00 Pulse Ox 96 10/16/23 08:00 O2 Del Method Room Air 10/16/23 08:00 O2 Flow Rate 4 10/15/23 17:52 BMI result Body Mass Index 16.3 Urology Results Labs 10/16/23 06:20 10/16/23 06:20 Labs: Laboratory Results - last 24 hr 10/15/23 10/15/23 10/15/23 09:25 13:17 14:40 WBC 15.3 H RBC 5.23 Hgb 15.6 Hct 45.3 MCV 86.6 MCH 29.8 MCHC 34.4 RDW 13.0 Plt Count 288 MPV 9.2 L Immature Gran % (Auto) 0.3 Neut % (Auto) 89.8 H Lymph % (Auto) 6.6 L [place] % (Auto) 2.9 Eos % (Auto) 0.1 Baso % (Auto) 0.3 Lymph # (Auto) 1.0 L [place] # (Auto) 0.4 Eos # (Auto) 0.0 Baso # (Auto) 0.0 Abs Immat Gran (auto) 0.05 H Absolute Neuts (auto) 13.7 H Absolute Nucleated RBC 0.000 Nucleated RBC % (auto) 0.0 Sodium 137 Potassium 3.5 Chloride 101 Carbon Dioxide 23 Anion Gap 17 BUN 22 H Creatinine 0.84 Estim Creat Clear Calc 50.3 Estimated GFR > 60 Random Glucose 130 H Fasting Glucose Lactic Acid 0.9 Calcium 10.1 Total Bilirubin 0.8 Direct Bilirubin 0.3 AST 12 ALT 7 Alkaline Phosphatase 65 Troponin I High Sens 3.5 C-Reactive Protein 31.72 H B-Natriuretic Peptide 63 Total Protein 7.4 Albumin 4.1 Lipase 9 Urine Color Yellow Urine Appearance Turbid Urine pH 6.0 Ur Specific [place] >= 1.030 H Urine Protein 30 (1+) H Urine Glucose (UA) Negative Urine Ketones Trace Urine Blood Large (3+) H Urine Nitrite Negative Ur Leukocyte Esterase Moderate (2+) H Urine RBC >20 H Urine WBC >50 H Ur Squamous Epith Cells 11-20 Urine Bacteria 3+ Hyaline Casts 6-10 Stool Occult Blood NEGATIVE 10/16/23 06:20 WBC 14.2 H RBC 4.13 L D Hgb 12.3 D Hct 36.3 L MCV 87.9 MCH 29.8 MCHC 33.9 RDW 13.2 Plt Count 248 MPV 9.5 Immature Gran % (Auto) Neut % (Auto) Lymph % (Auto) [place] % (Auto) Eos % (Auto) Baso % (Auto) Lymph # (Auto) [place] # (Auto) Eos # (Auto) Baso # (Auto) Abs Immat Gran (auto) Absolute Neuts (auto) Absolute Nucleated RBC 0.000 Nucleated RBC % (auto) 0.0 Sodium 138 Potassium 3.2 L Chloride 107 Carbon Dioxide 23 Anion Gap 11 L BUN 16 Creatinine 0.68 Estim Creat Clear Calc 62.2 Estimated GFR > 60 Random Glucose Fasting Glucose 112 H Lactic Acid Calcium 8.9 D Total Bilirubin Direct Bilirubin AST ALT Alkaline Phosphatase Troponin I High Sens C-Reactive Protein B-Natriuretic Peptide Total Protein Albumin Lipase Urine Color Urine Appearance Urine pH Ur Specific [place] Urine Protein Urine Glucose (UA) Urine Ketones Urine Blood Urine Nitrite Ur Leukocyte Esterase Urine RBC Urine WBC Ur Squamous Epith Cells Urine Bacteria Hyaline Casts Stool Occult Blood Progress Note: A&P Assessment and plan (1) Nephrolithiasis: Status: Acute (2) Kidney stone on left side: Status: Acute (3) Obstructive uropathy: Status: Acute (4) UTI (urinary tract infection): Status: Acute (5) Abnormal finding on CT scan: Status: Acute Plan S/P left ureteral stent for obstructed left kidney the patient is on IV abx, urine c/s pending No other surgical intervention planned as an inpatient The patient will need outpatient follow up with Urology for further stone management and f/u imaging for abnormal finding in the right renal pelvis Time Spent With Patient Time: Total time managing care of this patient today ____ minutes. Progress Note: Quality Stroke Does the patient have a stroke diagnosis?: No
--- NOTE | 2023-10-16 08:46 | HO.POSTANES ---
Post Anesthesia Evaluation Post Anesthesia Evaluation Date of Service: 10/16/23 Vital Signs: Vital Signs Temp Pulse Resp BP Pulse Ox O2 Del Method 10/16/23 08:00 97.5 F 86 15 126/68 96 Room Air 10/16/23 03:40 96.8 F 88 18 129/81 96 Room Air 10/16/23 00:00 97.3 F 76 17 101/61 95 Room Air Anesthesia: General Endotracheal-GETA Mental Status: Awake Pain Control: Satisfactory Nausea/Vomiting: None Hydration: Adequate Anesthesia-Related Issues: No Anes. Related Issues
--- NOTE | 2023-10-16 09:52 | P.PNIM_ITS ---
Subjective Subjective Date of Service: 10/16/23 Interval History: pain ipmroving Physical Exam 2 Vital Signs: Vital Signs: Last Vital Signs Temp 97.5 F 10/16/23 08:00 Pulse 86 10/16/23 08:00 Resp 15 10/16/23 08:00 BP 126/68 10/16/23 08:00 Pulse Ox 96 10/16/23 08:00 O2 Del Method Room Air 10/16/23 08:00 O2 Flow Rate 4 10/15/23 17:52 BMI result Body Mass Index 16.3 General: AO X 3, no acute distress Resp: CTA bilateral, no accessory muscles used CVS: S1,S2,RRR GI: soft, non tender, non distended Neuro: motor grossly intact, alert Psych: appropriate affect, appropriate insight Objective Data Active Medications Acetaminophen (Acetaminophen 325 Mg Tablet) 650 mg PO Q4H PRN PRN Reason: pain or fever Last Admin: 10/16/23 06:25 Dose: 650 mg Documented By: JERAMY Acetaminophen (Acetaminophen 325 Mg Tablet) 650 mg PO ONCE PRN PRN Reason: Pain, Mild (Pain Scale 1-3) Enoxaparin Sodium (Enoxaparin Sodium 40 Mg/0.4 Ml Syringe) 40 mg SUBCUT Q24H [facility] Last Admin: 10/16/23 07:57 Dose: Not Given Documented By: RONA Non-Admin Reason: procedure today Fentanyl (Fentanyl Citrate/Pf 100 Mcg/2 Ml Vial) 50 mcg IVPUSH Q5M PRN; Protocol PRN Reason: Pain, Severe (Pain Scale 7-10) Hydromorphone HCl (Hydromorphone Hcl 0.5 Mg/0.5 Ml Syringe) 0.5 mg IVPUSH Q5M PRN; Protocol PRN Reason: Pain, Severe (Pain Scale 7-10) Ceftriaxone Sodium 1 gm/ (Sodium Chloride) 50 mls @ 100 mls/hr IV Q24H [facility] Last Infusion: 10/15/23 20:23 Dose: Infused Documented By: JERAMY Metronidazole (Flagyl) 500 mg in 100 mls @ 100 mls/hr IV Q8H [facility] Last Infusion: 10/16/23 07:34 Dose: Infused Documented By: RONA Sodium Chloride (Ns) 1,000 mls @ 75 mls/hr IVCONT .[id number] [facility] Last Infusion: 10/15/23 23:27 Dose: 75 mls/hr Documented By: JERAMY Morphine Sulfate (Morphine Sulfate 2 Mg/Ml Cartridge) 2 mg IVPUSH Q3H PRN; Protocol PRN Reason: moderate pain Ondansetron HCl (Ondansetron Hcl 4 Mg/2 Ml Vial) 4 mg IVPUSH Q6H PRN PRN Reason: Nausea and Vomiting Last Admin: 10/15/23 20:02 Dose: 4 mg Documented By: JERAMY Oxycodone HCl (Oxycodone Hcl Immed Release 5 Mg Tablet) 5 mg PO ONCE PRN PRN Reason: Pain, Severe (Pain Scale 7-10) Sodium Chloride (0.9 % Sodium Chloride Flush 3 Ml Syringe) 3 ml IVFLUSH QSHIFT [facility] Last Admin: 10/16/23 07:15 Dose: Not Given Documented By: RONA Non-Admin Reason: IV Running Labs 10/16/23 06:20 10/16/23 06:20 Labs: Laboratory Results - last 24 hr 10/15/23 10/15/23 10/15/23 09:25 13:17 14:40 MCV MCH MCHC RDW Plt Count MPV Absolute Nucleated RBC Nucleated RBC % (auto) Anion Gap Estim Creat Clear Calc Estimated GFR Fasting Glucose Lactic Acid 0.9 Calcium C-Reactive Protein 31.72 H Urine Color Yellow Urine Appearance Turbid Urine pH 6.0 Ur Specific [place] >= 1.030 H Urine Protein 30 (1+) H Urine Glucose (UA) Negative Urine Ketones Trace Urine Blood Large (3+) H Urine Nitrite Negative Ur Leukocyte Esterase Moderate (2+) H Urine RBC >20 H Urine WBC >50 H Ur Squamous Epith Cells 11-20 Urine Bacteria 3+ Hyaline Casts 6-10 10/16/23 06:20 MCV 87.9 MCH 29.8 MCHC 33.9 RDW 13.2 Plt Count 248 MPV 9.5 Absolute Nucleated RBC 0.000 Nucleated RBC % (auto) 0.0 Anion Gap 11 L Estim Creat Clear Calc 62.2 Estimated GFR > 60 Fasting Glucose 112 H Lactic Acid Calcium 8.9 D C-Reactive Protein Urine Color Urine Appearance Urine pH Ur Specific [place] Urine Protein Urine Glucose (UA) Urine Ketones Urine Blood Urine Nitrite Ur Leukocyte Esterase Urine RBC Urine WBC Ur Squamous Epith Cells Urine Bacteria Hyaline Casts Assessment and Plan (1) Abnormal finding on CT scan: Status: Acute Plan 53F PMH unintentional weight loss, nephrolithiasis presented with abd pain, n/v sepsis due to UTI due to obstructing left nephrolithiasis with hydronephrosis s/p stent 10/15/23 continue rocephin follow up cultures ?ileocolitis GI appreciated possible underdistension due to n/v empiric rocpehin, flagyl check stool pcr, calprotectin, if persists can do outpatient ct enterography clears for now unintentional weight loss - underweight patient now reporting decreased appetite and intake due to change in job encourage po intake dvt prophylaxis - lovenox full code reason for continued hospitalization:not tolerating solids, awaiting cultures Quality Stroke Does the patient have a stroke diagnosis?: No VTE Prior VTE?: No VTE Risk Level:: Medical - moderate - high VTE Device Contraindication: Treatment Not Indicated VTE Drug Contraindication: N/A - Med Ordered
--- NOTE | 2023-10-16 10:50 | MHC.CM.PN ---
PT REPORTS SHE LIVES ALONE AND IS INDEPENDENT WITH CARE SHE HAS NO SERVICES AND NO DME PT DOES NOT KNOW THE NAME OF HER PCP, BUT REPORTS SHE GOES TO [facility] SHE WILL COMPLETE A HCP TODAY NAMING HER DAUGHTER, AVRIL, AND SON, LUIS MANUEL, HER AGENTS DCP: HOME NO SERVICES VIA PRIVATE TRANSPORT
[2023-10-16] MEDS: 0.9 % Sodium Chloride 1,000 ML 75 ML IVCONT (10:59)
[2023-10-16 11:24] VITALS: BMI 16.3
--- NOTE | 2023-10-16 11:40 | MHC.CLN ---
NUTRITION CONSULT FOR INVOLUNTARY WEIGHT LOSS. DIET=CLEAR LIQUIDS. AGREES TO GELATEIN TID (480 KCALS, 60 G PROTEIN) FOR ADDITIONAL NUTRITION. INVOLUNTARY WEIGHT LOSS, APPROX 20# X 6 MONTHS REPORTED. NUTRITION DX NON SEVERE, MODERATE, MALNUTRITION IN THE CONTEXT OF CHRONIC ILLNESS. FOLLOW FOR DIET ADVANCEMENT AND INTAKE. SEE CLINICAL NUTRITION ASSESSMENT 10/16/23.
[2023-10-16 15:01] VITALS: BP 123/71; PULSE 70; RESP 16; TEMP 36.6; O2SAT 97
[2023-10-16] MEDS: ondansetron HCL 4 MG/2 ML VIAL IVPUSH (17:32)
[2023-10-16 19:46] VITALS: BP 131/73; PULSE 82; RESP 18; TEMP 36.8; O2SAT 97
[2023-10-16] MEDS: cefTRIAXone sodium 1 GM in 0.9 % Sodium Chloride 50 ML IV (19:50)
[2023-10-16] MEDS: Magnesium Hydrox/Alum Hydrox 30 ML ORAL.SUSP PO (20:05)
[2023-10-16] MEDS: Morphine Sulfate 2 MG/ML CARTRIDGE IVPUSH (22:37)
[2023-10-17] VITALS: BP 120/62; PULSE 75; RESP 18; TEMP 36.2; O2SAT 97
[2023-10-17 03:26] VITALS: BP 137/79; PULSE 72; RESP 18; TEMP 36.3; O2SAT 97
[2023-10-17] MEDS: 0.9 % Sodium Chloride 1,000 ML 75 ML IVCONT (03:53)
[2023-10-17] MEDS: metroNIDAZOLE/NS 500 MG/100 ML PIGGYBACK 100 MG IV (06:22)
[2023-10-17 06:28] LABS: Hematocrit 35.5 % (37.0-47.0); Hemoglobin 12.1 g/dl (12.0-16.0); Mean Corpuscular HGB Conc 34.1 g/dl (31.0-35.0); Mean Corpuscular Hemoglobin 30.3 pg (27.0-33.0); Mean Corpuscular Volume 88.8 fL (80.0-98.0); Mean Platelet Volume 9.8 fL (9.4-12.3); Platelet Count 264 X10*3/uL (160-400); Red Cell Distribution Width 13.1 % (11.0-16.0); White Blood Count 11.8 X10*3/uL (4.8-10.8)
[2023-10-17 06:49] LABS: Anion Gap 13 (12-20); Blood Urea Nitrogen 12 mg/dL (9-16); Calcium 8.7 mg/dL (8.4-10.2); Carbon Dioxide 24 mmol/L (22-29); Chloride 107 mmol/L (96-108); Creatinine Clr Calc Pharmacy 67.2; Estimated Glomerular Filt Rate > 60; Glucose Fasting 94 mg/dL (60-99); Sodium 141 mmol/L (135-145)
[2023-10-17 07:19] VITALS: BP 142/77; PULSE 70; RESP 16; TEMP 36.4; O2SAT 96
[2023-10-17] MEDS: Potassium Chloride ER 20 MEQ TAB.ER.PRT 40 MEQ PO (08:03)
[2023-10-17] MEDS: Enoxaparin Sodium 40 MG/0.4 ML SYRINGE SUBCUT (08:04)
--- NOTE | 2023-10-17 08:56 | P.PNIM_ITS ---
Subjective Subjective Date of Service: 10/17/23 Interval History: pain ipmroving Physical Exam 2 Vital Signs: Vital Signs: Last Vital Signs Temp 97.6 F 10/17/23 07:19 Pulse 70 10/17/23 07:19 Resp 16 10/17/23 07:19 BP 142/77 H 10/17/23 07:19 Pulse Ox 96 10/17/23 07:19 O2 Del Method Room Air 10/17/23 07:19 O2 Flow Rate 4 10/15/23 17:52 BMI result Body Mass Index 16.3 General: AO X 3, no acute distress Resp: CTA bilateral, no accessory muscles used CVS: S1,S2,RRR GI: soft, non tender, non distended Neuro: motor grossly intact, alert Psych: appropriate affect, appropriate insight Objective Data Active Medications Acetaminophen (Acetaminophen 325 Mg Tablet) 650 mg PO Q4H PRN PRN Reason: pain or fever Last Admin: 10/16/23 13:01 Dose: 650 mg Documented By: RONA Acetaminophen (Acetaminophen 325 Mg Tablet) 650 mg PO ONCE PRN PRN Reason: Pain, Mild (Pain Scale 1-3) Enoxaparin Sodium (Enoxaparin Sodium 40 Mg/0.4 Ml Syringe) 40 mg SUBCUT Q24H [facility] Last Admin: 10/17/23 08:04 Dose: 40 mg Documented By: NADINE Fentanyl (Fentanyl Citrate/Pf 100 Mcg/2 Ml Vial) 50 mcg IVPUSH Q5M PRN; Protocol PRN Reason: Pain, Severe (Pain Scale 7-10) Hydromorphone HCl (Hydromorphone Hcl 0.5 Mg/0.5 Ml Syringe) 0.5 mg IVPUSH Q5M PRN; Protocol PRN Reason: Pain, Severe (Pain Scale 7-10) Ceftriaxone Sodium 1 gm/ (Sodium Chloride) 50 mls @ 100 mls/hr IV Q24H [facility] Last Infusion: 10/16/23 20:23 Dose: Infused Documented By: EMMY Metronidazole (Flagyl) 500 mg in 100 mls @ 100 mls/hr IV Q8H [facility] Last Infusion: 10/17/23 08:05 Dose: Infused Documented By: NADINE Sodium Chloride (Ns) 1,000 mls @ 75 mls/hr IVCONT .[id number] [facility] Last Admin: 10/17/23 03:53 Dose: 75 mls/hr Documented By: EMMY Morphine Sulfate (Morphine Sulfate 2 Mg/Ml Cartridge) 2 mg IVPUSH Q3H PRN; Protocol PRN Reason: moderate pain Last Admin: 10/16/23 22:37 Dose: 2 mg Documented By: EMMY Ondansetron HCl (Ondansetron Hcl 4 Mg/2 Ml Vial) 4 mg IVPUSH Q6H PRN PRN Reason: Nausea and Vomiting Last Admin: 10/16/23 17:32 Dose: 4 mg Documented By: RONA Oxycodone HCl (Oxycodone Hcl Immed Release 5 Mg Tablet) 5 mg PO ONCE PRN PRN Reason: Pain, Severe (Pain Scale 7-10) Sodium Chloride (0.9 % Sodium Chloride Flush 3 Ml Syringe) [facility] Last Admin: 10/17/23 08:00 Dose: Not Given Documented By: NADINE Non-Admin Reason: IV Running Labs 10/17/23 05:19 10/17/23 05:19 Labs: Laboratory Results - last 24 hr 10/17/23 05:19 MCV 88.8 MCH 30.3 MCHC 34.1 RDW 13.1 Plt Count 264 MPV 9.8 Absolute Nucleated RBC 0.000 Nucleated RBC % (auto) 0.0 Anion Gap 13 Estim Creat Clear Calc 67.2 Estimated GFR > 60 Fasting Glucose 94 Calcium 8.7 Microbiology Microbiology Results: Microbiology 10/15/23 15:07 Blood Culture - Preliminary Blood - Venous No growth after 24 hours. 10/15/23 14:40 Blood Culture - Preliminary Blood - Venous No growth after 24 hours. 10/15/23 Unknown Urine Culture - Final Urine clean catch - Urine galloway top 10/15/23 Unknown Urine Culture - Preliminary Urine Other - Kidney Left No growth to date. Assessment and Plan (1) Abnormal finding on CT scan: Status: Acute Plan 53F PMH unintentional weight loss, nephrolithiasis presented with abd pain, n/v sepsis due to UTI due to obstructing left nephrolithiasis with hydronephrosis s/p stent 10/15/23 continue rocephin cultures negative to date ?ileocolitis GI appreciated possible underdistension due to n/v empiric rocpehin, flagyl check stool pcr, calprotectin, if persists can do outpatient ct enterography advance to solids unintentional weight loss - underweight, moderate protein calorie malnutrition patient now reporting decreased appetite and intake due to change in job encourage po intake dvt prophylaxis - lovenox full code reason for continued hospitalization: awaiting tolerance of solids Quality Stroke Does the patient have a stroke diagnosis?: No VTE Prior VTE?: No VTE Risk Level:: Medical - moderate - high VTE Device Contraindication: Treatment Not Indicated VTE Drug Contraindication: N/A - Med Ordered
[2023-10-17 12:00] VITALS: BP 146/83; PULSE 66; RESP 16; TEMP 36.6; O2SAT 96
--- NOTE | 2023-10-17 13:35 | PM.DS ---
DS: Providers Provider Date of Service: 10/17/23 Date of admission: 10/15/23 14:21 Primary care physician: JOSH Panchal Consults: 10/15/23 14:19 Consult to Gastroenterology Routine Consulting Provider: Cindy Samuel Reason for consultation: ?ibd Consult to Urology Routine Consulting Provider: Kiran Garcia Reason for consultation: obstructing stone DS: Diagnosis Discharge Diagnosis (1) Abnormal finding on CT scan: Status: Acute DS: Summary Hospital Course Hospital Course: from initial hpi: 53F PMH unintentional weight loss, nephrolithiasis presented with abd pain, n/v. symptoms began 2 nights prior to presentation. severe diffuse abdominal pain a/w nausea and vomiting. subjective fevers, chills. also reports about 30lbs unintentional weight loss despite reasonable appetite over past several months. denies diarrhea, blood in stool. in ED noted to have obstructing left ureteral stone, positive ua, ileocolitis. hospital course: Patient was admitted for sepsis due to urinary tract infection due to obstructing left nephrolithiasis with hydronephrosis. She was treated empirically with ceftriaxone and will be discharged on 5 more days of Augmentin. Cultures were negative. She underwent stent placement on 10/15/2023 and will follow up with Urology as outpatient. For ileal colitis seen on CT scan she was seen by GI who felt this was most likely underdistention due to nausea and vomiting, but still suspicious for possible IBD. She was treated empirically with ceftriaxone and Flagyl and will continue 5 days of Augmentin as mentioned. Will likely need CT enterography as outpatient. Patient was advanced to solids and tolerated well. She will be discharged home. Time Attestation Discharge coordination time: Greater than 30 minutes Quality: Safe Use of Opioids Does Pt have an Active Cancer Diagnosis on the Problem List?: No Quality: Stroke Does the patient have a stroke diagnosis?: No Physical Exam Vital Signs: Vital Signs: Last Vital Signs Temp 97.9 F 10/17/23 12:00 Pulse 66 10/17/23 12:00 Resp 16 10/17/23 12:00 BP 146/83 H 10/17/23 12:00 Pulse Ox 96 10/17/23 12:00 O2 Del Method Room Air 10/17/23 12:00 O2 Flow Rate 4 10/15/23 17:52 BMI result Body Mass Index 16.3 General: AO X 3, no acute distress Resp: CTA bilateral, no accessory muscles used CVS: S1,S2,RRR GI: soft, non tender, non distended Neuro: motor grossly intact, alert Psych: appropriate affect, appropriate insight DS: Data Data Completed and Pending Labs on day of discharge: Laboratory Results - last 24 hr 10/17/23 05:19 WBC 11.8 H RBC 4.00 L Hgb 12.1 Hct 35.5 L MCV 88.8 MCH 30.3 MCHC 34.1 RDW 13.1 Plt Count 264 MPV 9.8 Absolute Nucleated RBC 0.000 Nucleated RBC % (auto) 0.0 Sodium 141 Potassium 3.0 L Chloride 107 Carbon Dioxide 24 Anion Gap 13 BUN 12 Creatinine 0.63 Estim Creat Clear Calc 67.2 Estimated GFR > 60 Fasting Glucose 94 Calcium 8.7 Preliminary micro results at discharge 10/15/23 15:07 Blood Culture - Preliminary Blood - Venous No growth after 24 hours. 10/15/23 14:40 Blood Culture - Preliminary Blood - Venous No growth after 24 hours. Discharge Plan Discharge Anticipated Discharge Date/Time: 10/17/23 13:26 Patient Disposition: Home, Self-Care Discharge Diagnosis: kidney stone, colitis Referrals: Kiran Garcia MD [Physician] - 1 Week Greta Esquivel PA [Primary Care Provider] - 1 Week Cindy Samuel MD [Physician] - 1 Week Discharge Medications: New ondansetron 4 mg tablet,disintegrating 4 mg PO Q8H PRN (Reason: nausea and vomiting) Qty: 20 0RF amoxicillin-pot clavulanate 875-125 mg tablet 1 tab PO BID Qty: 10 0RF Discharge Orders: Discharge Order (Routine); Ordered 10/17/23 Ordered By: Alverto Paris Diet: Advance to usual diet Activity on Discharge: As tolerated Stand Alone Forms: Patient Portal Discharge page, Work/School Release Care Plan Goals: recovery Health Concerns: kidney stone, colon and ileum inflamation on CT Plan of Treatment: 5 more days augmentin follow up with urology follow up with gastroenterology Assessment: see above
--- NOTE | 2023-10-17 14:04 | MHC.CM.PN ---
PT WILL DC HOME TODAY WITH NO SERVICES VIA PRIVATE TRANSPORT
[2023-10-17] MEDS: ondansetron HCL 4 MG/2 ML VIAL IVPUSH (14:08)
== END 2023-10-17 14:21 | disposition home or self-care (01) | DRG 463 ==
LOC: HO.ED 14:03 → HO.EDOVER 14:30 → HO.S3 16:24
PROVIDERS: Urology; Admitting Provider Internal Medicine; Emergency Provider Emergency Medicine; PCP Physician Assistant Medical; Visit Provider Internal Medicine
PROC: 0T778DZ Dilation of Left Ureter with Intraluminal Device, Via Natural or Artificial Opening Endoscopic (ICD-10-PCS; principal; 2023-10-15 17:00)
DX: N13.6 Pyonephrosis (principal); E44.0 Moderate protein-calorie malnutrition; K52.3 Indeterminate colitis; K21.9 Gastro-esophageal reflux disease without esophagitis; F17.210 Nicotine dependence, cigarettes, uncomplicated; Z71.6 Tobacco abuse counseling; Z23 Encounter for immunization; Z68.1 Body mass index [BMI] 19.9 or less, adult
CPT/HCPCS: 36415; 74177; 80048; 80076; 81001; 82272; 83605; 83690; 83880; 84484; 85025; 85027; 86140; 87040; 87086; 90686; 99285; C1758; C1769; C2617; J0696; J1100; J1170; J1650; J1836; J1956; J2250; J2270; J2405; J2543; J2704; J2765; J3010; Q9967

== ENCOUNTER → 2023-10-15 14:21 | Outpatient (BNV) | payer OTHER, SELFPAY | PROVIDERS: Admitting Provider Internal Medicine; Emergency Provider Emergency Medicine; Visit Provider Internal Medicine | DX: A41.9 Sepsis, unspecified organism (principal); N39.0 Urinary tract infection, site not specified; N20.0 Calculus of kidney; R93.89 Abnormal findings on diagnostic imaging of other specified body structures | CPT/HCPCS: 99223; 99233; 99238 ==

== ENCOUNTER → 2023-10-15 14:21 | Outpatient (BNV) | payer OTHER, SELFPAY | PROVIDERS: Admitting Provider Internal Medicine; Emergency Provider Emergency Medicine; Visit Provider Urology | DX: N20.0 Calculus of kidney (principal); N13.9 Obstructive and reflux uropathy, unspecified; N39.0 Urinary tract infection, site not specified; R93.89 Abnormal findings on diagnostic imaging of other specified body structures | CPT/HCPCS: 52332; 99222; 99232 ==

== ENCOUNTER → 2023-10-15 14:21 | Outpatient (BNV) | payer OTHER, SELFPAY | PROVIDERS: Admitting Provider Internal Medicine; Emergency Provider Emergency Medicine; PCP Physician Assistant Medical; Visit Provider Internal Medicine Gastroenterology | DX: R93.89 Abnormal findings on diagnostic imaging of other specified body structures (principal); K52.9 Noninfective gastroenteritis and colitis, unspecified | CPT/HCPCS: 99222 ==

== ENCOUNTER 2023-10-26 13:23 | Outpatient (AMB) | payer OTHER, SELFPAY ==
--- NOTE | 2023-10-26 13:23 | MHC.OFFVIS ---
Intake Intake Visit Reasons: ER Follow-Up/KUB Results Intake Note: Patient presents today for a ER follow-up Meds- None Allergies to Antibiotic- No Known Allergies Blood Thinner- None Logistics Associate Required: No Accompanied by: Self / Same As Patient Allergies No Known Allergies Allergy (Verified 10/26/23 13:38) HPI HPI Comments History of Present Illness Details June is a 53 year old female who was initially evaluated as an inpatient. She was admitted due to left obstructive uropathy and UTI. CT scan abd/pelvis with IV contrast -- an obstructing left UPJ stone with multiple left renal stones andalso notes question of 1.1 cm enhancement in the right renal pelvis which will need further evaluation. She presents for office follow-up she states she has been doing well has occasional urgency, denies fever CTAP W/IV contrast--Moderate to marked left hydronephrosis with 1.3 x 1.3 x 1.3 cm impacted calculus in the left renal pelvis. No significant left perinephric stranding. Delayed enhancement of the left kidney due to obstructive physiology. numerous additional nonobstructing left renal calculi as described above. Right renal pelvis Focus of possible enhancement measuring 1.1 x 0.7 [address] urogram. Left ESWL discussed. Discussed risks to include but not limited to, blood in the urine, bruising to the skin, kidney hematoma, possible need for another procedure if a stone fragment obstructs the ureter while passing, possible need to repeat procedure if stone is not completely fragmented. 10/26/2023--Plan Schedule Left ESWL, KUB Further evaluation of right renal pelvis with CT urogram or cystoscopy right retro pyelogram. PFSH Medical History Underweight Cerebellar abscess Anxiety Surgical History H/O tubal ligation H/O brain surgery Social History Household Members: None Housing: Apartment Do you presently have visiting nurse or other home services: No Patient Tobacco Use Status: Current everyday Tobacco user Tobacco use type: Cigarette Cigarette Packs Per Day: 0.5 Cigarettes Per Day: 10.0 Years Smoked: 30 Second Hand Smoke Exposure: No Substance Use Type: Marijuana service: No Review of Systems Const All systems reviewed & are unremarkable except as noted in HPI and below Reports no additional complaints Eyes Reports no additional complaints ENT Reports no additional complaints Card Denies dyspnea Resp Denies cough and Denies dyspnea GI Reports no additional complaints Reports no additional complaints Musc Reports no additional complaints Skin/Breast Denies rash and Denies unusual bruising Neuro Reports no additional complaints Psych Reports no additional complaints Endo Reports no additional complaints Beni/Lymph Reports no additional complaints Aller/Immun Reports no additional complaints Results AMB Urinalysis, Automated UA Leukoctes 500 Carlotta/uL [facility], [facility] on 10/26/23 13:41 UA Nitrite Negative [facility], [facility] on 10/26/23 13:41 UA Urobilinogen 0.2 mg/dL Last Edit by [facility], [facility] on 10/26/23 13:41 UA Protein 300 mg/dL Last Edit by [facility], [facility] on 10/26/23 13:41 UA pH 6.0 Last Edit by [facility], [facility] on 10/26/23 13:41 UA Blood 200 Lorne/uL Last Edit by [facility] on 10/26/23 13:41 UA Specific [place] 1.025 Last Edit [facility] on 10/26/23 13:41 UA Ketone Negative Last Edit by [facility] on 10/26/23 13:41 UA Bilirubin 0 mg/dL Last Edit by [facility] on 10/26/23 13:41 UA Glucose 0 mg/dL Last Edit by [facility] on 10/26/23 13:41 Results Reviewed Results Reviewed: Laboratory Last Values Urine pH (Auto) 6.0 10/26/23 13:39 Specific [place] (Auto) 1.025 10/26/23 13:39 Urine Protein (Auto) 300 mg/dL 10/26/23 13:39 Glucose (UA)(Auto) 0 mg/dL 10/26/23 13:39 Urine Ketones (Auto) Negative 10/26/23 13:39 Urine Blood (Auto) 200 [place]orne/uL 10/26/23 13:39 Urine Nitrite (Auto) Negative 10/26/23 13:39 Urine Bilirubin (Auto) 0 mg/dL 10/26/23 13:39 Urine Urobilinogen (Auto) 0.2 mg/dL 10/26/23 13:39 Leukocyte Esterase (Auto) 500 Carlotta/uL 10/26/23 13:39 Date of Service: 10/15/23 CT ABDOMEN AND PELVIS WITH CONTRAST CLINICAL INFORMATION: Lower abdominal pain. COMPARISON: None available. TECHNIQUE: Multidetector volumetric images were obtained from the superior aspect of the liver through the pubic symphysis following administration 85 mL of Omnipaque 350 intravenous contrast. Sagittal and coronal reformatted images were obtained on the technologist's workstation. Oral contrast: No This CT examination was performed using dose optimization techniques as appropriate, variously including the following: *Automated exposure control *Adjustment of mA and/or kV according to patient size (this includes techniques or standardized protocols for targeted exams where dose is matched to indication/reason for exam; i.e. extremities or head) *Use of iterative reconstruction technique DLP: 260 mGy-cm FINDINGS: LUNG BASES: Small pericardial effusion. LIVER, GALLBLADDER, AND BILIARY TREE: The liver is normal in size, shape, and attenuation. No biliary ductal dilatation is present. The gallbladder is unremarkable with no evidence of radiopaque gallstones, gallbladder wall thickening, or obvious pericholecystic inflammatory changes. PANCREAS: Unremarkable. SPLEEN: Unremarkable. ADRENAL GLANDS: Unremarkable. KIDNEYS AND URETERS: Delayed enhancement of the left kidney. Moderate to marked left hydronephrosis. 1.2 x 1.2 x 1.3 cm impacted calculus at the left renal pelvis. No significant perinephric stranding. Left kidney: 2 mm upper pole nonobstructing calculus. 5 mm midpole nonobstructing calculus. 5 mm and 3 mm mid to lower pole nonobstructing calculi. 10 mm lower pole nonobstructing calculus. The right kidney enhances normally. There is an focus of enhancement in the right renal pelvis measuring 1.1 x 0.7 x 0.8 cm on image 25 of series 3. BLADDER: No bladder calculus. GASTROINTESTINAL TRACT: Rectal wall thickening with luminal narrowing. Diffuse colonic wall thickening. There is mid to distal small bowel wall thickening with submucosal edema including the terminal ileum. ABDOMINAL WALL: No significant hernia is appreciated. LYMPH NODES: No bulky abdominal or pelvic lymphadenopathy. VASCULAR: Normal caliber abdominal aorta with moderate atherosclerotic vascular calcification. PELVIC VISCERA: Moderate free fluid in the pelvis. OSSEOUS STRUCTURES: No destructive bone lesions. IMPRESSION: Small and large bowel wall thickening with submucosal edema. The terminal ileum is thick walled. There is moderate free fluid in the pelvis. These findings can be seen in the setting of inflammatory bowel disease. Moderate to marked left hydronephrosis with 1.3 x 1.3 x 1.3 cm impacted calculus in the left renal pelvis. No significant left perinephric stranding. There are numerous additional nonobstructing left renal calculi as described above. Delayed enhancement of the left kidney due to obstructive physiology. Focus of possible enhancement within the right renal pelvis measuring 1.1 x 0.7 x [address] urogram. Assessment & Plan Assessment & Plan (1) Abnormal finding on CT scan: Code(s): R93.89 - Abnormal findings on diagnostic imaging of other specified body structures (2) Nephrolithiasis: Code(s): N20.0 - Calculus of kidney (3) Kidney stone on left side: Code(s): N20.0 - Calculus of kidney Plan Schedule Left ESWL, KUB Further evaluation of right renal pelvis with CT urogram or cystoscopy right retro pyelogram. Orders: Orders AMB Urinalysis Automated Today R33.9 - Retention of urine, unspecified Patient Instructions: The patient had an opportunity to ask questions regarding treatment plan. All questions were answered. Imaging, Laboratory studies and physical exam results were discussed and reviewed in detail. No major barriers to understanding were identified. The patient expressed understanding and agreement with the above treatment plan. The patient is aware they should contact our office by phone for worsening of their current condition or the appearance of new symptoms. Compliance is encouraged with any medications and followup testing that is ordered. It is a privilege to be allowed the opportunity to participate in the urologic care of your patient. If you have any questions or concerns regarding treatment for the above conditions please do not hesitate to contact me. The office telephone contact is [phone]. This note is constructed in part using voice recognition software. While every effort has been made to ensure accuracy communication analyst errors may have been included. Yours sincerely, Kiran Garcia MD Coding Level of Care Code Est Pt Level 4 (49328) Diagnoses Abnormal finding on CT scan R93.89 Nephrolithiasis N20.0 Kidney stone on left side N20.0
== END 2023-10-26 14:04 | disposition home or self-care (01) ==
PROVIDERS: PCP Physician Assistant Medical; Visit Provider Urology
DX: R93.89 Abnormal findings on diagnostic imaging of other specified body structures (principal); N20.0 Calculus of kidney; R33.9 Retention of urine, unspecified
CPT/HCPCS: 99214

== ENCOUNTER 2023-10-26 13:23 | Outpatient (REF) | payer OTHER, SELFPAY | END 2023-10-26 13:24 | disposition home or self-care (01) | LOC: HO.LAB 13:23 | PROVIDERS: PCP Physician Assistant Medical; Visit Provider Urology | DX: N39.0 Urinary tract infection, site not specified (principal); R93.89 Abnormal findings on diagnostic imaging of other specified body structures; R33.9 Retention of urine, unspecified; N20.0 Calculus of kidney | CPT/HCPCS: 81003; 87086; 99212 ==

== ENCOUNTER 2024-01-04 09:13 | Inpatient (IN) | payer SELFPAY ==
--- NOTE | ~2024-01-04 | XR_ITS ---
EXAMINATION: XR ABDOMEN KUB CLINICAL INDICATION: Evaluate stent placement COMPARISON: Previous CT from earlier the same day TECHNIQUE: AP view of the abdomen. FINDINGS: Left internal ureteral stent in satisfactory position. Multiple small left renal stones largest measuring 3 to 4 mm. Larger central stone projecting over the proximal end of the stent measuring 1.2 cm. No right renal stone. Normal bowel gas pattern. Normal bony structures. XR/XR KUB IMPRESSION: Left internal ureteral stent in satisfactory position. Multiple left renal stones, largest a central stone measuring 1.2 cm projecting over the proximal end of the stent.
--- NOTE | ~2024-01-04 | FL_ITS ---
EXAMINATION: XR FLUOROSCOPY WITH IMAGES CLINICAL INFORMATION: Left renal stones. COMPARISON: CT abdomen from 01/04/2024. TECHNIQUE: Fluoroscopy Supervised by Dr. Garcia. Fluoroscopy Time: 47.4 sec Cumulative Dose: 5.26 mGy. DAP: This information is not provided on the dose summary sheet. Images: 2. FL/FL guidance in OR FINDINGS AND IMPRESSION: This report is provided to document use of fluoroscopic imaging equipment during urologic procedures. The images demonstrate a well-positioned left ureteral stent.
--- NOTE | ~2024-01-04 | CT_ITS ---
EXAMINATION: CT ABDOMEN AND PELVIS WITHOUT CONTRAST CLINICAL INFORMATION: Evaluate stent placement. Flank pain. COMPARISON: Previous CT of the abdomen and pelvis October 2023 TECHNIQUE: Multidetector volumetric imaging was performed from the superior aspect of the liver through the pubic symphysis. Sagittal and coronal reformatted images were obtained on the technologist's workstation. This CT examination was performed using dose optimization techniques as appropriate, variously including the following: *Automated exposure control *Adjustment of mA and/or kV according to patient size (this includes techniques or standardized protocols for targeted exams where dose is matched to indication/reason for exam; i.e. extremities or head) *Use of iterative reconstruction technique DLP: 295 mGy-cm FINDINGS: Exam is limited due to motion artifact. LUNG BASES: The visualized lung bases are unremarkable. LIVER, GALLBLADDER, AND BILIARY TREE: The liver is normal in size, shape, and attenuation. No focal hepatic lesion or biliary ductal dilatation is present. The gallbladder is unremarkable with no evidence of radiopaque gallstones, gallbladder wall thickening, or obvious pericholecystic inflammatory changes. PANCREAS: Unremarkable. SPLEEN: Unremarkable. ADRENAL GLANDS: Unremarkable. KIDNEYS AND URETERS: Left internal ureteral stent in satisfactory position with proximal pigtail in the renal pelvis and distal pigtail in the bladder. Multiple left renal stones, largest measures 10 x 12 mm in the left renal pelvis. There is mild left hydronephrosis. The left ureter does not appear dilated. No left ureteral stone adjacent to the stent is seen. The right kidney is normal. BLADDER: Unremarkable. GASTROINTESTINAL TRACT: Question mild wall thickening of the left colon versus changes due to underdistention. The small and large bowel are otherwise unremarkable. The appendix is not seen. ABDOMINAL WALL: No significant hernia is appreciated. LYMPH NODES: Normal. VASCULAR: Unremarkable. PELVIC VISCERA: Unremarkable. OSSEOUS STRUCTURES: Unremarkable. CT/CT abdomen pelvis wo IV con IMPRESSION: Satisfactory position of left internal ureteral stent. Multiple left renal stones, largest measuring 10 x 12 mm in the left renal pelvis. Mild left hydronephrosis. Question of mild wall thickening/colitis of the left colon versus changes due to underdistention. Fleischner guidelines were followed.
[2024-01-04 09:40] VITALS: BP 107/83; PULSE 104; RESP 16; TEMP 37.1; O2SAT 98; BMI 16.3
[2024-01-04 10:24] LABS: MANUAL DIFF FLAG NO
[2024-01-04 10:26] LABS: Appearance Urine Clear; Color Urine Yellow; Glucose Urine UA Negative (Negative); Leukocyte Esterase Urine Large (3+) (Negative); Nitrite Urine Negative (Negative); UMIC TRIGGER UACC YES; Urine Blood Large (3+) (Negative); Urine Ketones Negative (Negative); Urine Protein 100 (2+) mg/dL (Neg-Trace)
[2024-01-04 10:27] LABS: Basophils Absolute Auto 0.1 X10*3/uL (0.0-0.2); Basophils Percent Auto 0.7 % (0-2); Eosinophils Absolute Auto 0.2 X10*3/uL (0.0-0.4); Eosinophils Percent Auto 2.1 % (0-4); Hematocrit 42.6 % (37.0-47.0); Hemoglobin 14.5 g/dl (12.0-16.0); Imm Gran Abs Auto 0.04 X10*3/uL (0.00-0.03); Imm Gran Pct Auto 0.4 % (0.0-0.4); Lymphocytes Absolute Auto 3.1 X10*3/uL (1.2-4.9); Mean Corpuscular Hemoglobin 30.5 pg (27.0-33.0); Mean Corpuscular Volume 89.7 fL (80.0-98.0); Mean Platelet Volume 8.8 fL (9.4-12.3); Monocytes Absolute Auto 0.6 X10*3/uL (0.1-1.2); Monocytes Percent Auto 5.4 % (2-11); Neutrophils Absolute Auto 6.7 x10*3/uL (2.0-8.3); Neutrophils Percent Auto 62.4 % (45-73); Platelet Count 342 X10*3/uL (160-400); Red Blood Count 4.75 X10*6/uL (4.20-5.50); White Blood Count 10.7 X10*3/uL (4.8-10.8)
[2024-01-04 10:41] LABS: Alanine Aminotransferase 8 U/L (0-31); Albumin Level 4.3 g/dL (3.5-5.0); Alkaline Phosphatase 79 U/L (39-117); Anion Gap 15 (12-20); Aspartate Amino Transferase 12 U/L (5-31); Bilirubin Total 0.3 mg/dL (0.0-1.0); Blood Urea Nitrogen 16 mg/dL (9-16); Calcium 9.9 mg/dL (8.4-10.2); Carbon Dioxide 23 mmol/L (22-29); Chloride 107 mmol/L (96-108); Creatinine Clr Calc Pharmacy 57.5; Estimated Glomerular Filt Rate > 60; Glucose Random 85 mg/dL (60-115); Potassium 4.5 mmol/L (3.3-5.1); Sodium 140 mmol/L (135-145); Total Protein 7.3 g/dL (6.5-8.0)
[2024-01-04 11:10] LABS: Bacteria Urine None Seen (None Seen); Hyaline Casts Urine 0-2 /LPF (0-2); RBC Urine >20 /HPF (0-2); UACC Culture Trigger YES; WBC Urine 21-50 /HPF (0-5)
--- NOTE | 2024-01-04 17:46 | ED_ITS ---
HPI - Female Genitourinary General Chief complaint: Urogenital-Female Stated complaint: vaginal and abd pain Time Seen by Provider: 01/04/24 17:51 Source: patient Mode of arrival: ambulatory Limitations: no limitations History of Present Illness HPI Narrative: Patient is a 53 year old assigned female at with a history of urologic stent placed in October [address] De Jesus presenting to the emergency department today with flank pain, vaginal pain, and pain with urination. Patient states that in October of 2023 she was seen by Dr. De Jesus who placed a stent. Patient states that her pain has gotten worse and now she is having sharp pain in her vaginal canal for which she is concerned is the stent. Patient denies any dizziness, lightheadedness, nausea, vomiting, fever, chills, blurry vision, double vision, loss of vision, chest pain, difficulty breathing, shortness of breath, back pain, night sweats, blood in her urine or stool, syncope or a near syncopal episode, recent trauma or falls, bowel incontinence, bladder incontinence, bowel retention, bladder retention, or any other complaints at this time. Related Data Home Medications ?Medication ?Instructions ?Recorded ?Confirmed acetaminophen 325 mg tablet 650 mg PO TID 01/04/24 01/04/24 Allergies Allergy/AdvReac Type Severity Reaction Status Date / Time No Known Allergies Allergy Verified 01/04/24 09:42 Review of Systems 2 Constitutional: Constitutional: Reports no additional constitutional complaints, Denies chills, Denies fever(s) and Denies night sweats Eyes: Eyes: Reports no additional eye complaints, Denies blurry vision, Denies change in vision, Denies diplopia, Denies eye discharge, Denies loss of vision and Denies eye pain ENT: Denies dizziness Cardiovascular: Cardiovascular: Reports no additional cardiovascular complaints, Denies chest pain, Denies lightheadedness, Denies Loss of Consciousness and Denies dyspnea Respiratory: Respiratory: Reports no additional respiratory complaints and Denies dyspnea Gastrointestinal: Gastrointestinal: Reports no additional gastrointestinal complaints, Denies abdominal pain, Denies melena, Denies hematochezia, Denies change in bowel habits and Denies change in stool character Genitourinary: Genitourinary: Denies hematuria, Denies urinary frequency, Reports dysuria, Reports pelvic pain, Reports flank pain, Denies urinary incontinence, Denies urinary hesitancy and Denies urinary urgency Musculoskeletal: Musculoskeletal: Reports no additional musculoskeletal complaints, Denies numbness and Denies tingling Neurologic: Denies dizziness, Denies loss of vision, Denies numbness and Denies tingling Psychiatric: Psychiatric: Reports no additional psychiatric complaints Endocrine: Endocrine: Reports no additional endocrine complaints Hematologic/Lymphatic: Hematologic/Lymphatic: Reports no additional hematologic/lymphatic complaints Allergic/Immunologic: Allergic/Immunologic: Reports no additional allergic/immunologic complaints PMFSH Past Medical History Attestation statement: The following information was validated with the patient. Source: old records reviewed and nursing notes reviewed Medical History Underweight Cerebellar abscess Anxiety Surgical History H/O tubal ligation H/O brain surgery Social History Social History Household Members: None Housing: Apartment Do you presently have visiting nurse or other home services: No Patient Tobacco Use Status: Current everyday Tobacco user Tobacco use type: Cigarette Cigarette Packs Per Day: 0.5 Cigarettes Per Day: 10.0 Years Smoked: 30 Smoked in Last 30 Days: Yes Second Hand Smoke Exposure: No Use of substances other than those prescribed or required for medical reasons: Yes Substance Use Type: Marijuana Advance Directives: Yes Advance Directives on File: Yes Advance Directives Date on File: 10/20/23 Do you have a plan to hurt others: No Plan Patient : No service: No Physical Exam 2 Vital Signs: Vital Signs: Last Vital Signs Temp 98.8 F 01/04/24 09:40 Pulse 71 01/04/24 18:31 Resp 18 01/04/24 18:31 BP 118/81 01/04/24 18:31 Pulse Ox 98 01/04/24 18:31 O2 Del Method Room Air 01/04/24 18:31 BMI result Body Mass Index 16.3 Const: General: cooperative, no acute distress, alert and awake Nutritional Appearance: well nourished Orientation/consciousness: patient oriented x3 Limitations: no limitations HEENT: Head: Yes normal to inspection and Yes atraumatic Ears: hearing grossly normal bilaterally and external ears normal General nose exam: Normal external nose present, no nasal discharge noted and no epistaxis Face and sinus: Yes normal facial exam, No abrasion and No laceration Mouth: Normal oral and palatal mucosa present, no drooling and no muffled voice Eyes: General: appearance normal, both eyes and all related structures P eriorbital: periorbital findings normal Eyelids: Yes eyelids normal C onjunctivae: conjunctivae normal Pupils: Equal, round and reactive pupils present EOM: EOMs intact bilaterally Neck: Neck: Yes normal visual inspection, Yes full ROM and Yes no lymphadenopathy Chest: Chest palpation & inspection: normal inspection of the chest Resp: Effort & Inspection: normal respiratory effort and able to speak in complete sentences GI: Inspection: Yes normal to inspection Neuro: General: patient oriented x3 and moves all extremities Cranial nerves: Yes Equal, round and reactive pupils present Cognition (Neuro): n ormal cognition Motor exam (neuro): 5/5 motor strength present throughout Sensory Exam: Normal double simultaneous stimulation for sensation C oordination: [id number] test normal Extrem: General: Yes normal to inspection, Yes full ROM and Yes capillary refill normal Psych: Appearance: grossly normal Mental Status: mental status grossly normal Affect: normal affect Attitude: cooperative Thought process: N ormal thought process present Thought content: Normal thought content present Insight: Good insight present (Psych) Course Course Course Narrative: RME performed by Stacey Ji PA-C. Patient is a 53 year old assigned female at presenting to the emergency department with vaginal pain and burning with urination. Detailed physical exam and review of systems are deferred to the packing house laborer. Labs and imaging ordered. Patient placed back in the waiting room pending room availability and results. Medications Administered Discontinued Medications Generic Name Dose Route Start Last Admin Trade Name Rose PRN Reason Stop Dose Admin Hydromorphone HCl 1 mg 01/04/24 17:56 01/04/24 18:45 Hydromorphone Hcl 1 Mg/Ml Syringe IVPUSH 01/04/24 17:57 1 mg ONCE ONE Administration Protocol Ondansetron HCl 4 mg 01/04/24 17:56 01/04/24 18:45 Ondansetron Hcl 4 Mg/2 Ml Vial IVPUSH 01/04/24 17:57 4 mg ONCE ONE Administration Medical Decision Making Medical Decision Making MDM Narrative: Patient is a 53 year old assigned female at with a history of recent urologic stent placed secondary to large kidney stones in October of 2023 presenting to the emergency department today with continued pain and concern of stent positioning. Patient's physical exam was unremarkable. Patient's blood work was unremarkable. Patient's urine showed evidence of an infection. Patient's KUB x-ray showed a left internal ureteral stent in satisfactory position with multiple left renal stones including a central stone measuring 1.2cm projecting over the proximal end of the stent. Patient's CT abd/pelvis confirmed these findings and noted left hydronephrosis. I spoke to Dr. Hendricks who recommended admission to his service with add on for procedure tomorrow. Patient's clinical presentation is not consistent with sepsis (@1745). I explained my physical exam findings as well as all test results to the patient. I answered all questions asked by the patient. Patient verbalized agreement and understanding with this treatment plan and admission. Differential Diagnosis Differential Diagnoses: The differential diagnosis associated with the presentation includes Renal stone Renal stone causing hydronephrosis UTI Urologic stent complication Admission/Observation Consideration of admission/observation: Escalation of care including admission/observation considered Patient admitted as noted in the MDM Rationale portion of this note. Consult Healthcare Provider Management of the patient was discussed with: Electrodynamicist (spoke to Dr. Hendricks as noted in the MDM Rationale portion of this note.) Lab Data [facility] Lab Attestation statement: I reviewed the patient's lab results. My interpretation of these results are in the MDM Rationale portion of this note. 01/04/24 10:14 01/04/24 10:14 Labs: Lab Results 01/04/24 Range/Units 10:14 WBC 10.7 (4.8-10.8) X10*3/uL RBC 4.75 (4.20-5.50) X10*6/uL Hgb 14.5 (12.0-16.0) g/dl Hct 42.6 (37.0-47.0) % MCV 89.7 (80.0-98.0) fL MCH 30.5 (27.0-33.0) pg MCHC 34.0 (31.0-35.0) g/dl RDW 14.0 (11.0-16.0) % Plt Count 342 D (160-400) X10*3/uL MPV 8.8 L (9.4-12.3) fL Immature Gran % (Auto) 0.4 (0.0-0.4) % Neut % (Auto) 62.4 (45-73) % Lymph % (Auto) 29.0 (20-40) % [place] % (Auto) 5.4 (2-11) % Eos % (Auto) 2.1 (0-4) % Baso % (Auto) 0.7 (0-2) % Lymph # (Auto) 3.1 (1.2-4.9) X10*3/uL [place] # (Auto) 0.6 (0.1-1.2) X10*3/uL Eos # (Auto) 0.2 (0.0-0.4) X10*3/uL Baso # (Auto) 0.1 (0.0-0.2) X10*3/uL Abs Immat Gran (auto) 0.04 H (0.00-0.03) X10*3/uL Absolute Neuts (auto) 6.7 (2.0-8.3) x10*3/uL Absolute Nucleated RBC 0.000 (0.0-0.012) X10*3/uL Nucleated RBC % (auto) 0.0 (0.0-0.2) /100WBC Sodium 140 (135-145) mmol/L Potassium 4.5 D (3.3-5.1) mmol/L Chloride 107 (96-108) mmol/L Carbon Dioxide 23 (22-29) mmol/L Anion Gap 15 (12-20) BUN 16 (9-16) mg/dL Creatinine 0.76 (0.5-1.4) mg/dL Estim Creat Clear Calc 57.5 Estimated GFR > 60 Random Glucose 85 (60-115) mg/dL Calcium 9.9 D (8.4-10.2) mg/dL Total Bilirubin 0.3 (0.0-1.0) mg/dL AST 12 (5-31) U/L ALT 8 (0-31) U/L Alkaline Phosphatase 79 (39-117) U/L Total Protein 7.3 (6.5-8.0) g/dL Albumin 4.3 (3.5-5.0) g/dL Urine Color Yellow Urine Appearance Clear Urine pH 6.0 (5.0-9.0) Ur Specific [place] 1.010 (1.005-1.025) Urine Protein 100 (2+) H (Neg-Trace) mg/dL Urine Glucose (UA) Negative (Negative) mg/dL Urine Ketones Negative (Negative) mg/dL Urine Blood Large (3+) H (Negative) Urine Nitrite Negative (Negative) Ur Leukocyte Esterase Large (3+) H (Negative) Urine RBC >20 H (0-2) /HPF Urine WBC 21-50 H (0-5) /HPF Ur Squamous Epith Cells 3-5 (0-2) /HPF Urine Bacteria None Seen (None Seen) Hyaline Casts 0-2 (0-2) /LPF Independent Interpretation I performed an independent interpretation of an: Plain X-Ray and CT Scan Interpretation: My interpretation is in agreement with the radiologist's impression of these imaging studies. - EXAMINATION: XR ABDOMEN KUB CLINICAL INDICATION: Evaluate stent placement COMPARISON: Previous CT from earlier the same day TECHNIQUE: AP view of the abdomen. FINDINGS: Left internal ureteral stent in satisfactory position. Multiple small left renal stones largest measuring 3 to 4 mm. Larger central stone projecting over the proximal end of the stent measuring 1.2 cm. No right renal stone. Normal bowel gas pattern. Normal bony structures. XR/XR KUB IMPRESSION: Left internal ureteral stent in satisfactory position. Multiple left renal stones, largest a central stone measuring 1.2 cm projecting over the proximal end of the stent. Dictated By: Reshma Groves MD Signed By: Electronically signed by Reshma Groves MD 01/04/24 1416 - EXAMINATION: CT ABDOMEN AND PELVIS WITHOUT CONTRAST CLINICAL INFORMATION: Evaluate stent placement. Flank pain. COMPARISON: Previous CT of the abdomen and pelvis October 2023 TECHNIQUE: Multidetector volumetric imaging was performed from the superior aspect of the liver through the pubic symphysis. Sagittal and coronal reformatted images were obtained on the technologist's workstation. This CT examination was performed using dose optimization techniques as appropriate, variously including the following: *Automated exposure control *Adjustment of mA and/or kV according to patient size (this includes techniques or standardized protocols for targeted exams where dose is matched to indication/reason for exam; i.e. extremities or head) *Use of iterative reconstruction technique DLP: 295 mGy-cm FINDINGS: Exam is limited due to motion artifact. LUNG BASES: The visualized lung bases are unremarkable. LIVER, GALLBLADDER, AND BILIARY TREE: The liver is normal in size, shape, and attenuation. No focal hepatic lesion or biliary ductal dilatation is present. The gallbladder is unremarkable with no evidence of radiopaque gallstones, gallbladder wall thickening, or obvious pericholecystic inflammatory changes. PANCREAS: Unremarkable. SPLEEN: Unremarkable. ADRENAL GLANDS: Unremarkable. KIDNEYS AND URETERS: Left internal ureteral stent in satisfactory position with proximal pigtail in the renal pelvis and distal pigtail in the bladder. Multiple left renal stones, largest measures 10 x 12 mm in the left renal pelvis. There is mild left hydronephrosis. The left ureter does not appear dilated. No left ureteral stone adjacent to the stent is seen. The right kidney is normal. BLADDER: Unremarkable. GASTROINTESTINAL TRACT: Question mild wall thickening of the left colon versus changes due to underdistention. The small and large bowel are otherwise unremarkable. The appendix is not seen. ABDOMINAL WALL: No significant hernia is appreciated. LYMPH NODES: Normal. VASCULAR: Unremarkable. PELVIC VISCERA: Unremarkable. OSSEOUS STRUCTURES: Unremarkable. CT/CT abdomen pelvis wo IV con IMPRESSION: Satisfactory position of left internal ureteral stent. Multiple left renal stones, largest measuring 10 x 12 mm in the left renal pelvis. Mild left hydronephrosis. Question of mild wall thickening/colitis of the left colon versus changes due to underdistention. Fleischner guidelines were followed. Dictated By: Reshma Groves MD Signed By: Electronically signed by Reshma Groves MD 01/04/24 8299 Radiology Impression Discussion of test interpretation with radiology: I have reviewed the radiologist's reading. Critical Care Time Critical Care Time Critical Care Time: Yes Total Critical Care Time: 182 Attestation: I spent 182 minutes of Critical Care Time with this patient. This does not include time spent on separately reported billable procedures. Discharge Plan Discharge Clinical Impression: Hydronephrosis with obstructing calculus Patient Disposition: Admitted As Inpatient Print Language: Macedonian
[2024-01-04 18:31] VITALS: BP 118/81; PULSE 71; RESP 18; O2SAT 98
--- NOTE | 2024-01-04 18:40 | PHA.MEDREC ---
Pharmacy Consult ? Medication Reconciliation Pharmacy has completed the medication reconciliation. Patient only takes APAP. Yoli Arteaga, DestinyD
[2024-01-04] MEDS: HYDROmorphone HCl 1 MG/ML SYRINGE IVPUSH (18:45)
[2024-01-04] MEDS: ondansetron HCL 4 MG/2 ML VIAL IVPUSH (18:45)
[2024-01-04] MEDS: cefTRIAXone sodium 1 GM in 0.9 % Sodium Chloride 50 ML IV (19:50)
[2024-01-04 19:51] VITALS: BP 112/67; PULSE 58; RESP 15; TEMP 36.5; O2SAT 100
[2024-01-04 19:57] LABS: Lactic Acid 0.8 mmol/L (0.5-2.0)
--- NOTE | 2024-01-04 20:00 | PC.NURSE ---
pt offered nicotine patch/gum as educated pt will be admitted to hospital for surgery and cannot smoke cigarettes. pt reports she thinks she will be fine and does not want nicotine replacement.
--- NOTE | 2024-01-04 20:44 | PC.NURSE ---
pt had vomiting episodes. denies nausea at this time. nad. resting comfortably. provider aware. call mauricio within reach.
[2024-01-04 21:30] VITALS: BP 99/62; PULSE 51; RESP 18; TEMP 36.5; O2SAT 95
[2024-01-04 22:28] VITALS: BP 106/62; PULSE 57; RESP 16; TEMP 36.6; O2SAT 98
--- NOTE | 2024-01-04 22:28 | PC.NURSE ---
pt requested warm blanket. vss. nad. call mauricio within reach.
[2024-01-05] VITALS (15 sets, daily range): BP systolic 103–164; BP diastolic 54–101; PULSE 50–91; RESP 15–20; TEMP 36.3–36.8; O2SAT 93–100; BMI 16.1; BMI 17.8
--- NOTE | 2024-01-05 01:56 | PC.NURSE ---
pt awoke and dressed self in clothes. pt states she cannot stay any longer as she needs a cigarette. pt states she does not want nicotine replacement. pt states she is upset as she cannot eat; educated pt for importance of NPO prior to surgery/risks. pt states i will pass out if i do not eat. pt walked to bathroom and locked staff out. upon return to room pt is calm and states understanding plan of care educated by this RN and rn hemodialysis charge.
[2024-01-05] MEDS: HYDROmorphone HCl 1 MG/ML SYRINGE 0.5 MG IVPUSH ×2 (02:05→10:21)
[2024-01-05] MEDS: 0.9 % Sodium Chloride Flush 3 ML SYRINGE IVFLUSH ×2 (02:05→08:28)
--- NOTE | 2024-01-05 06:19 | PC.NURSE ---
report given to short stay surgery RN.
--- NOTE | 2024-01-05 08:24 | PC.NURSE ---
PT IS A/O X 4 NO SOB/ADELAIDE NOTE. SPEAKS IN FULL SENTENCES. PT IS ANGRY/UPSET AT THIS TIME BECAUSE SHE WANTS TO EAT AND SHE STATES THAT SHE HAS NOT EATEN SINCE YESTERDAY. PT C/O 10 LOWER ABD/VAGINAL PAIN ESPECIALLY WHEN SHE VOIDS. PT AWARE OF PLAN OF CARE FOR SURGERY TODAY. WILL CONTINUE TO MONITOR.
--- NOTE | 2024-01-05 09:01 | MHC.CM.PN ---
Met with patient in regards to discharge planning. Patient lives alone, ambulates independently and had no services prior to coming to the hospital. No services anticipated to be needed because patient is not homebound. PCP verified. Copy of HCP verified to be on file. Patient drove herself here and her car is currently in the parking lot. Patient anticipates she will drive herself home. Continue to monitor for d/c needs.
--- NOTE | 2024-01-05 11:20 | PC.NURSE ---
DR PUENTE AT BEDSIDE, PT AWARE OF PLAN OF CARE.,
--- NOTE | 2024-01-05 12:02 | PC.NURSE ---
PT IS OFF TO SURGERY VIA STRETCHER
--- NOTE | 2024-01-05 13:18 | HO.ANESPROP2 ---
[facility] Active Problems Active Problems: All Active Problems Hydronephrosis with obstructing calculus (Acute) Abnormal finding on CT scan (Acute) Nephrolithiasis (Acute) Kidney stone on left side (Acute) Colitis (Acute) Underweight (Acute) Anxiety (Acute) Past Medical History Medical History Underweight Cerebellar abscess Anxiety Family History Family history of problems with anesthesia: No Surgical History Surgical History H/O tubal ligation H/O brain surgery History of Problems with Anesthesia: No Social History Social History Household Members: None Housing: Apartment Do you presently have visiting nurse or other home services: No Patient Tobacco Use Status: Current everyday Tobacco user Tobacco use type: Cigarette Cigarette Packs Per Day: 0.5 Cigarettes Per Day: 15 Years Smoked: 30 Smoked in Last 30 Days: Yes Second Hand Smoke Exposure: No Use of substances other than those prescribed or required for medical reasons: Yes Substance Use Type: Marijuana Substance Use Frequency: Daily Are you DNR?: No Advance Directives: Yes Advance Directives on File: Yes Advance Directives Date on File: 10/20/23 Do you have a plan to hurt others: No Plan Nutrition Risks: No Nutritional Risk Patient : No service: No Meds Allergies Allergy/AdvReac Type Severity Reaction Status Date / Time No Known Allergies Allergy Verified 01/04/24 09:42 Active Medications: Current Medications Acetaminophen (Acetaminophen 325 Mg Tablet) 650 mg PO Q6H PRN PRN Reason: Pain, Mild (Pain Scale 1-3) Hydromorphone HCl (Hydromorphone Hcl 1 Mg/Ml Syringe) 0.5 mg IVPUSH Q4H PRN; Protocol PRN Reason: Pain, Severe (Pain Scale 7-10) Last Admin: 01/05/24 10:21 Dose: 0.5 mg Ketorolac Tromethamine (Ketorolac Tromethamine 30 Mg/Ml Vial) 15 mg IVPUSH Q6H PRN PRN Reason: Pain, Mild (Pain Scale 1-3) Stop: 01/09/24 22:49 Sodium Chloride (0.9 % Sodium Chloride Flush 3 Ml Syringe) [address] [facility] Last Admin: 01/05/24 08:28 Dose: 3 ml Home Medications ?Medication ?Instructions ?Recorded ?Confirmed ?Last Taken ?Type acetaminophen 325 mg tablet 650 mg PO TID 01/04/24 01/04/24 Unknown History Exam Height,Weight and Vital Signs: Height 5 ft 4 in Weight 42.638 kg Last Vital Signs Temp 97.9 F 01/05/24 12:22 Pulse 61 01/05/24 12:22 Resp 16 01/05/24 12:22 BP 158/80 H 01/05/24 12:22 Pulse Ox 98 01/05/24 12:22 O2 Del Method Room Air 01/05/24 12:22 Pertinent Lab Results Pertinent Lab Results: Laboratory Tests 01/04/24 01/04/24 10:14 19:41 WBC 10.7 RBC 4.75 Hgb 14.5 Hct 42.6 MCV 89.7 MCH 30.5 MCHC 34.0 RDW 14.0 Plt Count 342 D MPV 8.8 L Immature Gran % (Auto) 0.4 Neut % (Auto) 62.4 Lymph % (Auto) 29.0 [place] % (Auto) 5.4 Eos % (Auto) 2.1 Baso % (Auto) 0.7 Lymph # (Auto) 3.1 [place] # (Auto) 0.6 Eos # (Auto) 0.2 Baso # (Auto) 0.1 Abs Immat Gran (auto) 0.04 H Absolute Neuts (auto) 6.7 Absolute Nucleated RBC 0.000 Nucleated RBC % (auto) 0.0 Sodium 140 Potassium 4.5 D Chloride 107 Carbon Dioxide 23 Anion Gap 15 BUN 16 Creatinine 0.76 Estim Creat Clear Calc 57.5 Estimated GFR > 60 Random Glucose 85 Lactic Acid 0.8 Calcium 9.9 D Total Bilirubin 0.3 AST 12 ALT 8 Alkaline Phosphatase 79 Total Protein 7.3 Albumin 4.3 Urine Color Yellow Urine Appearance Clear Urine pH 6.0 Ur Specific [place] 1.010 Urine Protein 100 (2+) H Urine Glucose (UA) Negative Urine Ketones Negative Urine Blood Large (3+) H Urine Nitrite Negative Ur Leukocyte Esterase Large (3+) H Urine RBC >20 H Urine WBC 21-50 H Ur Squamous Epith Cells 3-5 Urine Bacteria None Seen Hyaline Casts 0-2 Airway Mallampati Class: II (edentulous) TM Dist: >3cm Neck ROM: Full Denture: Upper Loose/Missing/Broken Teeth: Yes, Upper and Lower Heart: RRR Lungs: CTA Assessment and Plan Assessment Anesthesia Assessment: Anesthesia Plan Discussed and Chart Reviewed Final Anesthetic Review Family History of Problems with Anesthesia: No History of Problems with Anesthesia: No NPO: Yes ASA Class: II Final Preanesthetic Review: Meds/Allgs Chart Reviewed, Consent Obtained/Reviewed and Anes Risks/Benef Reviewed Patient Risk: Low Procedure Risk: Low Anesthetic Plan Anesthetic Plan: GA Disposition: Standard PACU
--- NOTE | 2024-01-05 13:20 | PM.HPGS ---
History of Present Illness History of Present Illness Date of Service: 01/05/24 Chief complaint: renal stone Narrative: June Allen is a 53 year old female who was an inpatient air at [facility], 10/2023. She was evaluated at that time for left hydronephrosis secondary to large obstructing UPJ stone. The patient had a left ureteral stent placed. The patient failed to follow-up for further treatment management. She stated that she did not have insurance. The patient presented to the ED on 01/04/2024 complaining of pain. I have reviewed the CT scan and KUB x-ray films with the patient. I have explained that removing the stent will cause the stone to obstruct the UPJ again. I have discussed lasering the stone and replacing another stent to minimize stone fragments causing further blockage of the kidney as they are passing. Review of Systems Review of Systems: Yes all other systems are reviewed and are negative Constitutional: Constitutional: Reports no additional constitutional complaints Eyes: Eyes: Reports no additional eye complaints ENT: Reports system reviewed and no additional complaints, except as documented Cardiovascular: Cardiovascular: Reports no additional cardiovascular complaints Respiratory: Respiratory: Reports no additional respiratory complaints Gastrointestinal: Gastrointestinal: Reports no additional gastrointestinal complaints Genitourinary: Genitourinary: Reports as per HPI Musculoskeletal: Musculoskeletal: Reports no additional musculoskeletal complaints Integumentary/Breasts: Skin/Breast: Reports system reviewed and no additional complaints, except as docu Neurologic: Reports system reviewed and no additional complaints, except as documented Psychiatric: Psychiatric: Reports no additional psychiatric complaints Endocrine: Endocrine: Reports no additional endocrine complaints Hematologic/Lymphatic: Hematologic/Lymphatic: Reports no additional hematologic/lymphatic complaints Allergic/Immunologic: Allergic/Immunologic: Reports no additional allergic/immunologic complaints [facility] Past Medical History Medical History Underweight Cerebellar abscess Anxiety Surgical History Surgical History H/O tubal ligation H/O brain surgery Social History Social History Household Members: None Housing: Apartment Do you presently have visiting nurse or other home services: No Patient Tobacco Use Status: Current everyday Tobacco user Tobacco use type: Cigarette Cigarette Packs Per Day: 0.5 Cigarettes Per Day: 15 Years Smoked: 30 Smoked in Last 30 Days: Yes Second Hand Smoke Exposure: No Use of substances other than those prescribed or required for medical reasons: Yes Substance Use Type: Marijuana Substance Use Frequency: Daily Are you DNR?: No Advance Directives: Yes Advance Directives on File: Yes Advance Directives Date on File: 10/20/23 Do you have a plan to hurt others: No Plan Nutrition Risks: No Nutritional Risk Patient : No service: No Meds Allergies Allergy/AdvReac Type Severity Reaction Status Date / Time No Known Allergies Allergy Verified 01/04/24 09:42 Active Medications: Current Medications Acetaminophen (Acetaminophen 325 Mg Tablet) 650 mg PO Q6H PRN PRN Reason: Pain, Mild (Pain Scale 1-3) Hydromorphone HCl (Hydromorphone Hcl 1 Mg/Ml Syringe) 0.5 mg IVPUSH Q4H PRN; Protocol PRN Reason: Pain, Severe (Pain Scale 7-10) Last Admin: 01/05/24 10:21 Dose: 0.5 mg Ketorolac Tromethamine (Ketorolac Tromethamine 30 Mg/Ml Vial) 15 mg IVPUSH Q6H PRN PRN Reason: Pain, Mild (Pain Scale 1-3) Stop: 01/09/24 22:49 Sodium Chloride (0.9 % Sodium Chloride Flush 3 Ml Syringe) 3 ml IVFLUSH [facility] Last Admin: 01/05/24 08:28 Dose: 3 ml Home Medications ?Medication ?Instructions ?Recorded ?Confirmed ?Last Taken ?Type acetaminophen 325 mg tablet 650 mg PO TID 01/04/24 01/04/24 Unknown History Physical Exam Vital Signs: Vital Signs: Last Vital Signs Temp 97.9 F 01/05/24 12:22 Pulse 61 01/05/24 12:22 Resp 16 01/05/24 12:22 BP 158/80 H 01/05/24 12:22 Pulse Ox 98 01/05/24 12:22 O2 Del Method Room Air 01/05/24 12:22 BMI result Body Mass Index 16.1 Const: General: cooperative, healthy appearing and no acute distress Orientation/consciousness: patient oriented x3 HEENT: Head: Yes normal to inspection, Yes normocephalic and Yes atraumatic Eyes: Conjunctivae: conjunctivae normal Neck: Neck: Yes normal visual inspection and Yes trachea midline Chest: Chest palpation & inspection: normal inspection of the chest Resp: Effort & Inspection: normal respiratory effort Cardio: Rate: regular rate GI: Inspection: Yes normal to inspection Palpation (GI): Soft to palpation : General: Yes CVA tenderness (Left) Back/Spine/Pelvis: Back: CVA tenderness (Left) Neuro: General: patient oriented x3 Extrem: General: No edema Psych: Appearance: grossly normal Results Results Labs: Urine 01/04/24 Range/Units 10:14 Urine Color Yellow Urine Appearance Clear Urine pH 6.0 (5.0-9.0) Ur Specific [place] 1.010 (1.005-1.025) Urine Protein 100 (2+) H (Neg-Trace) mg/dL Urine Glucose (UA) Negative (Negative) mg/dL Assessment and Plan (1) Hydronephrosis with obstructing calculus: Status: Acute (2) Nephrolithiasis: Status: Acute (3) Kidney stone on left side: Status: Acute (4) Ureteral stent present: Status: Acute Plan Plan for Cystoscopy, left ureteroscopy, possible laser lithotripsy, ureteral stent exchange. Risks discussed included but not limited to, possible need to repeat procedure if stone is not completely fragmented, Irritative voiding symptoms, bladder spasms, urgency, blood in urine. Quality Stroke Does the patient have a stroke diagnosis?: No VTE Prior VTE?: No VTE Risk Level:: Surgical - low VTE Device Contraindication: Treatment Not Indicated VTE Drug Contraindication: Treatment Not Indicated Procedures Date of Service Date of Service: 01/05/24
[2024-01-05] MEDS: ondansetron HCL 4 MG/2 ML VIAL IVPUSH (13:55)
--- NOTE | 2024-01-05 16:31 | P.HPGS_ITS ---
History of Present Illness History of Present Illness Date of Service: 01/04/24 Chief complaint: renal stone Narrative: June Allen is a 53 year old female Known 1 cm stone on left renal pelvis Stent previously paced Here with question of stent migration or UTI Imaging performed Stent in place with multiple stones in kidney Will admit for procedure Review of Systems Constitutional: Constitutional: Reports as per HPI and Reports no additional constitutional complaints Cardiovascular: Cardiovascular: Reports as per HPI and Reports no additional cardiovascular complaints Respiratory: Respiratory: Reports as per HPI and Reports no additional respiratory complaints Gastrointestinal: Gastrointestinal: Reports as per HPI and Reports no additional gastrointestinal complaints Genitourinary: Genitourinary: Reports as per HPI Musculoskeletal: Musculoskeletal: Reports no additional musculoskeletal complaints and Reports as per HPI Neurologic: Reports system reviewed and no additional complaints, except as documented and Reports as per HPI PMFSH Past Medical History Medical History Underweight Cerebellar abscess Anxiety Surgical History Surgical History H/O tubal ligation H/O brain surgery Social History Social History Household Members: None Housing: Apartment Do you presently have visiting nurse or other home services: No Patient Tobacco Use Status: Current everyday Tobacco user Tobacco use type: Cigarette Cigarette Packs Per Day: 0.5 Cigarettes Per Day: 15 Years Smoked: 30 Smoked in Last 30 Days: Yes Second Hand Smoke Exposure: No Use of substances other than those prescribed or required for medical reasons: Yes Substance Use Type: Marijuana Substance Use Frequency: Daily Are you DNR?: No Advance Directives: Yes Advance Directives on File: Yes Advance Directives Date on File: 10/20/23 Do you have a plan to hurt others: No Plan Nutrition Risks: No Nutritional Risk Patient : No service: No Meds Allergies Allergy/AdvReac Type Severity Reaction Status Date / Time No Known Allergies Allergy Verified 01/04/24 09:42 Active Medications: Current Medications Acetaminophen (Acetaminophen 325 Mg Tablet) 650 mg PO Q6H PRN PRN Reason: Pain, Mild (Pain Scale 1-3) Albuterol Sulfate (Albuterol Sulfate (0.083%) 2.5 Mg/3 Ml Vial.Neb) 2.5 mg INHALE ONCE PRN PRN Reason: Wheezing Stop: 01/05/24 19:43 Fentanyl (Fentanyl Citrate/Pf 100 Mcg/2 Ml Vial) 25 mcg IVPUSH Q5M PRN; Protocol PRN Reason: Pain, Moderate(Pain Scale 4-6) Stop: 01/05/24 19:43 Hydromorphone HCl (Hydromorphone Hcl 1 Mg/Ml Syringe) 0.5 mg IVPUSH Q4H PRN; Protocol PRN Reason: Pain, Severe (Pain Scale 7-10) Last Admin: 01/05/24 10:21 Dose: 0.5 mg Ketorolac Tromethamine (Ketorolac Tromethamine 30 Mg/Ml Vial) 15 mg IVPUSH Q6H PRN PRN Reason: Pain, Mild (Pain Scale 1-3) Stop: 01/09/24 22:49 Oxycodone HCl (Oxycodone Hcl Immed Release 5 Mg Tablet) 5 mg PO ONCE PRN PRN Reason: Pain, Severe (Pain Scale 7-10) Stop: 01/05/24 19:43 Sodium Chloride (0.9 % Sodium Chloride Flush 3 Ml Syringe) 3 ml IVFLUSH [facility] Last Admin: 01/05/24 08:28 Dose: 3 ml Home Medications ?Medication ?Instructions ?Recorded ?Confirmed ?Last Taken ?Type acetaminophen 325 mg tablet 650 mg PO TID 01/04/24 01/04/24 Unknown History Physical Exam Vital Signs: Vital Signs: Last Vital Signs Temp 97.9 F 01/05/24 12:22 Pulse 61 01/05/24 12:22 Resp 16 01/05/24 12:22 BP 158/80 H 01/05/24 12:22 Pulse Ox 98 01/05/24 12:22 O2 Del Method Room Air 01/05/24 12:22 BMI result Body Mass Index 16.1 Const: General: cooperative, healthy appearing, comfortable and no acute distress Orientation/consciousness: patient oriented x3 HEENT: Face and sinus: Yes normal facial exam Mouth: moist mucous membranes Neck: Neck: Yes normal visual inspection, Yes full ROM and Yes trachea midline Chest: Chest palpation & inspection: normal inspection of the chest Resp: Effort & Inspection: normal respiratory effort, able to speak in comp lete sentences and no respiratory distress GI: Inspection: Yes normal to inspection Back/Spine/Pelvis: Cervical Spine: normal cervical lordosis Thoracic/Lumbar Spine: thoracic and lumbar spine normal to inspection Skin: General skin exam: no rashes or lesions noted Neuro: General: patient oriented x3, tone normal and moves all extremities Extrem: General: Yes normal to inspection and Yes capillary refill normal Results Results Labs: Urine 01/04/24 Range/Units 10:14 Urine Color Yellow Urine Appearance Clear Urine pH 6.0 (5.0-9.0) Ur Specific [place] 1.010 (1.005-1.025) Urine Protein 100 (2+) H (Neg-Trace) mg/dL Urine Glucose (UA) Negative (Negative) mg/dL Assessment and Plan (1) Ureteral stent present: Status: Acute (2) Nephrolithiasis: Status: Acute Plan Admission with procedure on Thursday for stent revision and stone management with Dr Oniel Moise Stroke Does the patient have a stroke diagnosis?: No VTE Prior VTE?: No VTE Risk Level:: Surgical - low VTE Device Contraindication: Treatment Not Indicated VTE Drug Contraindication: Treatment Not Indicated Procedures Date of Service Date of Service: 01/05/24
--- NOTE | 2024-01-05 16:48 | P.OP_ITS ---
Operative Note Operative Note Date of Service: 01/05/24 Narrative: PreOperative Diagnosis:?? Left obstructing UPJ stone status post left ureteral stent Post Operative Diagnosis:?? Left obstructing UPJ stone status post left ureteral stent Procedure: Cystoscopy, Left ureteroscopy laser lithotripsy stent exchange, size 6 Lebanese by 26 cm Surgeon:?Dr Kiran Garcia Anesthesia:? General Indications for procedure: Here for stone fragmentation. Procedure: After informed consent was verified the patient was brought to the operating placed on the OR table in supine position.? General Anesthesia was administered per protocol.? The patient was placed in lithotomy position, prepped and draped in the usual sterile fashion.? Safety pause time-out and side of surgery confirmed.? Antibiotics confirmed. 1 g ceftriaxone, 160 mg gentamicin IV. A 22 Lebanese cystoscope was inserted transurethrally, The bladder was visualized.? Both ureteric orifices were in normal position. The left ureteral stent was curled in the bladder. The distal end of the ureteral stent was grasped with the flexible grasping forceps. The stent was pulled retrograde through the u rethra. A guidewire was passed through the stent. The cystoscope was removed, leaving the guidewire in place. The access sheath was then passed over the guidewire size 12 Lebanese by 36 cm which was passed to the mid ureter and met with resistance so no further passage up to the proximal ureter was performed. A 2nd guidewire was passed through the access sheath and the disposable flexible ureteroscope was passed over 1 of the guidewires. The stone was visualized at the left renal pelvis just at the entrance of the ureteropelvic junction. Laser lithotripsy of the stone was done using the 365 fiber with a combination of dusting and pulsating settings. There was good fragmentation of the stone. The 0 degree basket was passed in attempts to remove the stone fragments, stone fragments were not easily removed with the stone basket, thus no fragments were obtained to send for stone analysis. The ureteroscope and access sheath was removed. The cystoscope was passed over the safety guidewire. A? 6 Lebanese by 26 cm stent was placed into the ureter and renal pelvis under a combination of fluoroscopy and direct visualization. The bladder was emptied.? The rigid cystoscope was removed. ? The string was left on the stent and taped to the labia. The patient tolerated the procedure well and was brought to the recovery room in stable condition. Complications: None Drains: Ureteral stent as dictated above
[2024-01-05] MEDS: 0.9 % Sodium Chloride 1,000 ML 100 ML IVCONT (18:24)
--- NOTE | 2024-01-05 19:44 | PC.NURSE ---
At first encounter, pt was greeted and acknowledged, pt all of a sudden became upset and voicing want to go outside and wanted to go home, pt was verified want she wanted, reiterated importance to stay overnight for observation, pt still unconsolable and threatened to light a cigarette and then flipped by saying I will just smell it, pt was asked to cooperate with caregivers, pt continuously yelling and refusing care from the financial writer, security was called, came and took the game designer/creative director, pt still refused care from the financial writer, report given to CINTHIA Rodney.
[2024-01-05] MEDS: LORazepam 0.5 MG TABLET 0.25 MG PO (19:59)
[2024-01-05] MEDS: hydrOXYzine HCL 10 MG TABLET PO (19:59)
[2024-01-05] MEDS: Ketorolac Tromethamine 15 MG/ML VIAL IVPUSH (20:00)
[2024-01-05] MEDS: Phenazopyridine HCL 100 MG TABLET PO (20:10)
[2024-01-05] MEDS: Acetaminophen 325 MG TABLET 650 MG PO (21:44)
[2024-01-06] VITALS (7 sets, daily range): BP systolic 98–125; BP diastolic 56–80; PULSE 59–76; RESP 15–17; TEMP 36.2–36.5; O2SAT 95–97; BMI 17.8
[2024-01-06] MEDS: Ketorolac Tromethamine 15 MG/ML VIAL IVPUSH ×4 (02:49→20:14)
[2024-01-06] MEDS: Phenazopyridine HCL 100 MG TABLET PO ×3 (02:50→20:16)
[2024-01-06] MEDS: LORazepam 0.5 MG TABLET 0.25 MG PO ×3 (02:50→20:16)
[2024-01-06] MEDS: 0.9 % Sodium Chloride 1,000 ML 100 ML IVCONT ×3 (04:02→22:49)
[2024-01-06] MEDS: 0.9 % Sodium Chloride Flush 3 ML SYRINGE IVFLUSH (08:46)
--- NOTE | 2024-01-06 09:09 | HO.POSTANES ---
Post Anesthesia Evaluation Post Anesthesia Evaluation Date of Service: 01/05/24 Vital Signs: Vital Signs Temp Pulse Resp BP Pulse Ox O2 Del Method 01/06/24 06:56 97.4 F 67 15 98/56 L 96 Room Air 01/06/24 03:02 97.2 F 59 17 117/66 97 Room Air 01/05/24 23:59 97.3 F 61 16 117/65 98 Room Air Anesthesia: General LMA Mental Status: Awake Pain Control: Satisfactory Nausea/Vomiting: None Hydration: Adequate Anesthesia-Related Issues: No Anes. Related Issues
--- NOTE | 2024-01-06 11:24 | MHC.CLN ---
NUTRITION DIET=REGULAR. ADDING ENSURE TID PER CONVERSATION WITH PATIENT. PROVIDES 1050 KCALS, 60 G PROTEIN. NUTRITION DX UNDERWEIGHT. SEE CLINICAL NUTRITION ASSESSMENT 01/06/24.
[2024-01-06] MEDS: hydrOXYzine HCL 10 MG TABLET PO (20:16)
[2024-01-07 03:24] VITALS: BP 98/54; RESP 16; TEMP 36.4; O2SAT 95
[2024-01-07] MEDS: Phenazopyridine HCL 100 MG TABLET PO ×2 (05:28→11:36)
[2024-01-07 07:08] VITALS: BP 124/66; PULSE 65; RESP 16; TEMP 36; O2SAT 97
[2024-01-07] MEDS: Ketorolac Tromethamine 15 MG/ML VIAL IVPUSH (08:06)
[2024-01-07] MEDS: 0.9 % Sodium Chloride Flush 3 ML SYRINGE IVFLUSH (08:09)
--- NOTE | 2024-01-07 10:19 | MHC.CM.PN ---
Patient without insurance at this time. Referral sent to financial services to assist [employer].
--- NOTE | 2024-01-07 10:35 | P.PNUR_ITS ---
Subjective Subjective Date of Service: 01/07/24 Interval history: s/p left ureteroscopy laser lithotripsy of large renal pelvis stone. Stent exchange. The patient has been on IV fluid hydration. Left ureteral stent was removed this morning at the bedside. Plan for discharge today. Patient has multiple left renal stones and will need further stone management. Requested social work consultation. Physical Exam 2 Vital Signs: Vital Signs: Last Vital Signs Temp 96.8 F 01/07/24 07:08 Pulse 65 01/07/24 07:08 Resp 16 01/07/24 07:08 BP 124/66 01/07/24 07:08 Pulse Ox 97 01/07/24 07:08 O2 Del Method Room Air 01/07/24 07:08 O2 Flow Rate 2 01/05/24 17:45 BMI result Body Mass Index 17.8 Urology Results Labs 01/04/24 10:14 01/04/24 10:14 Progress Note: A&P Assessment and plan (1) Hydronephrosis with obstructing calculus: Status: Acute (2) Kidney stone on left side: Status: Acute (3) Ureteral stent present: Status: Acute Assessment and Plan: Left ureteral stent removed 01/07/24 Plan Left ureteral stent was removed this morning at the bedside. Plan for discharge today. Patient has multiple left renal stones and will need further stone management. Requested social work consultation. Time Spent With Patient Time: Total time managing care of this patient today ____ minutes. Progress Note: Quality Stroke Does the patient have a stroke diagnosis?: No
[2024-01-07 11:20] VITALS: BP 144/80; PULSE 68; RESP 18; TEMP 36.3; O2SAT 97
[2024-01-07] MEDS: LORazepam 0.5 MG TABLET 0.25 MG PO (11:36)
--- NOTE | 2024-01-07 13:56 | PM.DS ---
DS: Providers Provider Date of Service: 01/07/24 Date of admission: 01/04/24 22:50 Date of discharge: 01/05/24 Primary care physician: JOSH Panchal Admitting clinician: Zack Hendricks Attending physician on admission: Zack Hendricks Attending physician on discharge: Kiran Garcia Discharging clinician: Kiran Garcia DS: Diagnosis Discharge Diagnosis (1) Hydronephrosis with obstructing calculus: Status: Acute (2) Kidney stone on left side: Status: Acute (3) Ureteral stent present: Status: Acute DS: Summary Hospital Course Hospital Course: June Allen is a 53 year old female [place] [facility] [place] She was evaluated at that time for left hydronephrosis secondary to large obstructing UPJ stone. The patient had a left ureteral stent placed. The patient failed to follow-up for further treatment management. She stated that she did not have insurance. The patient presented to the ED on 01/04/2024 complaining of pain. Status post cystoscopy left ureteroscopy laser lithotripsy of large renal pelvis stone, stent exchange. The patient was evaluated with IV hydration and pain management. On 01/07/2024 the left ureteral stent was removed at the bedside. Status at Discharge Cognitive/behavioral status at discharge: Stable Functional status at discharge: independent ambulation Overall status at discharge: patient is back to baseline Time Attestation Total time managing care of this patient today: 35 mintues. Discharge Coordination Time (in mins): 35 minutes Quality: Safe Use of Opioids Does Pt have an Active Cancer Diagnosis on the Problem List?: No Quality: Stroke Does the patient have a stroke diagnosis?: No Physical Exam Vital Signs: Vital Signs: Last Vital Signs Temp 97.3 F 01/07/24 11:20 Pulse 68 01/07/24 11:20 Resp 18 01/07/24 11:20 BP 144/80 H 01/07/24 11:20 Pulse Ox 97 01/07/24 11:20 O2 Del Method Room Air 01/07/24 13:00 O2 Flow Rate 2 01/05/24 17:45 BMI result Body Mass Index 17.8 DS: Data Data Completed and Pending Completed studies during hospitalization [Text1]: Procedures Dilation of Left Ureter with Intraluminal Device, Via Natural or Artificial Opening Endoscopic (10/15/23) Labs on day of discharge: Preliminary micro results at discharge 01/04/24 19:49 Blood Culture - Preliminary Blood - Venous No growth after 48 hours. 01/04/24 19:41 Blood Culture - Preliminary Blood - Venous No growth after [address] scan - abdomen: Radiologist's impression: ITS Impressions KUB X-Ray 01/04/24 13:25 IMPRESSION: Left internal ureteral stent in satisfactory position. Multiple left renal stones, largest a central stone measuring 1.2 cm projecting over the proximal end of the stent. Abdomen/Pelvis CT 01/04/24 14:17 IMPRESSION: Satisfactory position of left internal ureteral stent. Multiple left renal stones, largest measuring 10 x 12 mm in the left renal pelvis. Mild left hydronephrosis. Question of mild wall thickening/colitis of the left colon versus changes due to underdistention. Fleischner guidelines were followed. Guidance Fluoroscopy 01/05/24 16:10 FINDINGS AND IMPRESSION: This report is provided to document use of fluoroscopic imaging equipment during urologic procedures. The images demonstrate a well-positioned left ureteral stent. Discharge Plan Discharge Anticipated Discharge Date/Time: 01/07/24 13:52 Patient Disposition: Home, Self-Care Discharge Diagnosis: Nephrolithiasis, left renal calculi Referrals: Greta Esquivel PA [Primary Care Provider] - 1 Week Discharge Medications: Continued acetaminophen 325 mg Tablet 650 mg PO TID Discharge Orders: Discharge Order (Routine); Ordered 01/07/24 Ordered By: Kiran Garcia Diet: Advance to usual diet Activity on Discharge: As tolerated Stand Alone Forms: Patient Portal Discharge page Print Language: Chadian Care Plan Goals: Increase water and intake to total at least 48 oz daily. Follow-up with Urology in 4 weeks. Multiple left renal stones remain. Health Concerns: Renal calculi Plan of Treatment: Follow-up with Urology in 4 weeks Assessment: Stable
== END 2024-01-07 14:10 | disposition home or self-care (01) | DRG 661 ==
LOC: HO.ED 19:32 → HO.EDOVER 22:57 → HO.S3 01-05 17:55
PROVIDERS: Physician Assistant Medical; Urology; Admitting Provider Urology; Emergency Provider Student in an Organized Health Care Education/Training Program; PCP Physician Assistant Medical; Visit Provider Urology
PROC: 0T778DZ Dilation of Left Ureter with Intraluminal Device, Via Natural or Artificial Opening Endoscopic (ICD-10-PCS; principal; 2024-01-05 13:40)
DX: N13.2 Hydronephrosis with renal and ureteral calculous obstruction (principal); F17.210 Nicotine dependence, cigarettes, uncomplicated; Z71.6 Tobacco abuse counseling
CPT/HCPCS: 36415; 74018; 74176; 80053; 81001; 83605; 85025; 87040; 87086; 99285; C1758; C1769; C2617; J0690; J0696; J1100; J1170; J1885; J2250; J2371; J2405; J2704; Q9967

== ENCOUNTER → 2024-01-04 22:50 | Outpatient (BNV) | payer SELFPAY | PROVIDERS: Admitting Provider Urology; Emergency Provider Student in an Organized Health Care Education/Training Program; PCP Physician Assistant Medical; Visit Provider Urology | DX: N13.2 Hydronephrosis with renal and ureteral calculous obstruction (principal); Z96.0 Presence of urogenital implants | CPT/HCPCS: 52356; 99222; 99238; 99499 ==